=== PATIENT | male | born 1985 | race Caucasian/White ===

== ENCOUNTER 2022-08-11 00:04 | Inpatient (IN) | payer OTHER, SELFPAY ==
[2022-08-11] VITALS (8 sets, daily range): BP systolic 141–199; BP diastolic 80–109; PULSE 67–91; RESP 15–18; TEMP 35.5–37.3; O2SAT 95–99; BMI 32.8; BMI 31.1
--- NOTE | 2022-08-11 00:23 | EKG12_ITS ---
Test Reason : DETOX Blood Pressure : / mmHG Vent. Rate : 065 BPM Atrial Rate : 065 BPM P-R Int : 154 ms QRS Dur : 104 ms QT Int : 428 ms P-R-T Axes : 013 -10 -28 degrees QTc Int : 445 ms Normal sinus rhythm Minimal voltage criteria for LVH, may be normal variant ( R in aVL ) Cannot rule out Anterior infarct , age undetermined Abnormal ECG Confirmed by ERIKA DOMÍNGUEZ, RUDY ([id number]), acquisitions editor IZA ANAND ([id number]) on 08/12/2022 2:01:34 PM Referred By: Confirmed By:RUDY JAMES MD
--- NOTE | 2022-08-11 00:41 | EDS_ITS ---
HPI History of Present Illness Chief Complaint: Substance Abuse Narrative Narrative: 37-year-old male presenting for EtOH detox. He states he drank about 9 tall boys today. This is typical for him. He typically drinks this much in the evening. He request detox. Patient states that he was able to successfully stop drinking cold turkey months ago. Since that time he has started drinking again and he notes that every time he tries to stop he gets muscle aches and spasms. He states he had some chest pains when he tries to withdrawal as well. He describes the chest pain as a spasms however. Not pressure or pleuritic chest pain. He does not see a doctor on a regular basis. He does not know if he has any risk factors for cardiac disease. He states he does have hypertension that he knows about but is not on any medications. [facility] Home Medications NK 08/11/22 [History Last Taken Unknown] Allergy/AdvReac Type Severity Reaction Status Date / Time No Known Allergies Allergy Verified 08/11/22 00:06 Social History Smoking Status: Current every day smoker tobacco type: cigarettes ROS ROS ED Constitutional Constitutional ED: Denies chills, fever(s) or sweats Eyes Eyes: Denies blurry vision or change in vision ENT ENT ED: Denies ear pain or sore throat Cardiovascular Cardiovascular: Reports other Details: Chest spasms ; Denies chest pain, palpitations or racing heartbeat Respiratory/Chest Respiratory/Chest: Denies cough, dyspnea or sputum Gastrointestinal Gastrointestinal: Denies abdominal pain, constipation, diarrhea, nausea or vomiting Genitourinary Genitourinary ED: Denies dysuria, hematuria or urinary frequency Musculoskeletal Musculoskeletal: Reports other Details: Muscle spasm ; Denies arthralgias, myalgias or neck pain Integumentary Denies abscess, Abrasions or rash Neurologic Neurologic: Denies headache(s), paresthesias or weakness Psychiatric Psychiatric: Denies anxiety, depression, suicidal ideation or suicidal thoughts Endocrine Endocrinology: Denies polydipsia or polyuria EXAM Physical Exam Const Vital Signs: 08/11/22 00:04 08/11/22 00:52 08/11/22 00:52 Temperature 96 F L Temperature Source Temporal Pulse Rate 67 Respiratory Rate 18 Blood Pressure 199/109 H 164/107 H Blood Pressure Mean 139 126 Pulse Ox 99 Oxygen Delivery Method Room Air Room Air 08/11/22 02:38 Temperature 98.9 F Temperature Source Temporal Pulse Rate 78 Respiratory Rate 15 Blood Pressure 164/90 H Blood Pressure Mean 114 Pulse Ox 95 Oxygen Delivery Method Room Air Positive well nourished and obese General Appearance ED: NAD; Negative for pallor Nutritional Appearance: obese HEENT Reports moist mucous membranes atraumatic Eyes PERRL and EOMs intact bilaterally General Eye ED: Negative for pale conjunctiva or scleral icterus Chest Wall inspection of chest normal Resp normal respiratory effort and clear to auscultation bilaterally Auscultation: Negative for rales, rhonchi or wheezes Cardio regular rate and regular rhythm GI soft to palpation, non-tender and non-distended Neuro oriented x3 and CN's II-XII intact bilaterally Sensorium / Orientation: alert Motor Exam: strength 5/5 throughout Psych mental status grossly normal and thought process normal Skin General Skin Exam: Negative for jaundice or pallor MDM MDM MDM Narrative Medical decision making narrative: Patient presenting for EtOH detox. He is not have any symptoms of detox and states he is intoxicated currently. He states he had will have withdrawal symptoms if he does not stay. IV line was established and blood work was ordered for medical screening. I did order a troponin, EKG, chest x-ray, due to the patient's report of history of chest pains with withdrawal symptoms. Patient is also hypertensive today. We will have his blood pressure cycled and if he continues to be hypertensive I will treat this. CBC, CMP unremarkable with exception of a potassium of 3.4. On my interpretation the EKG was sinus rhythm with a ventricular rate of 65 bpm without sign of ischemic change or ectopy. There is evidence of LVH. Chest x-ray my interpretation shows no acute cardiopulmonary process. The radiologist interprets this and agrees. High- sensitivity troponin is 22. EtOH 265. Drug screen negative. Patient discussed with hospitalist for admission for detox. Impression: 1. Chest pain 2. EtOH intoxication 3. Desire for EtOH detox Lab Data Attestation: I reviewed the patient's lab results. Labs: Laboratory Results - last 24 hr 08/11/22 08/11/22 08/11/22 01:00 01:00 01:00 WBC RBC Hgb Hct MCV MCH MCHC RDW Std Deviation RDW Coeff of Maia Plt Count MPV Immature Gran % (Auto) Neut % (Auto) Lymph % (Auto) [place] % (Auto) Eos % (Auto) Baso % (Auto) Absolute Neuts (auto) Absolute Lymphs (auto) Nucleated RBC % Sodium 139 Potassium 3.4 L Chloride 104 Carbon Dioxide 24.0 Anion Gap 11 BUN 14 Creatinine 0.92 Estim Creat Clear Calc 129.06 Est GFR (MDRD) Af Amer 120 Est GFR (MDRD) Non-Af 99 BUN/Creatinine Ratio 15.2 Glucose 77 Calcium 8.6 Total Bilirubin 0.40 Direct Bilirubin 0.19 AST 55 H ALT 109 H Alkaline Phosphatase 61 Troponin I High Sens 22 Total Protein 8.1 Albumin 4.1 Globulin 4.0 Urine Opiates Screen NEGATIVE Urine Methadone Screen NEGATIVE Ur Barbiturates Screen NEGATIVE Ur Phencyclidine Scrn NEGATIVE Ur Amphetamines Screen NEGATIVE MDMA (Ecstasy) Screen NEGATIVE U Benzodiazepines Scrn NEGATIVE Urine Cocaine Screen NEGATIVE U Cannabinoids Screen NEGATIVE Ur Drug Screen Comment Ethyl Alcohol 265.0 08/11/22 01:00 WBC 6.5 RBC 5.25 Hgb 17.2 H Hct 51.0 MCV 97.1 H MCH 32.8 H MCHC 33.7 RDW Std Deviation 42.2 RDW Coeff of Maia 11.8 Plt Count 205 MPV 9.6 Immature Gran % (Auto) 0.300 Neut % (Auto) 45.2 L Lymph % (Auto) 40.3 [place] % (Auto) 11.4 H Eos % (Auto) 1.7 Baso % (Auto) 1.1 H Absolute Neuts (auto) 2.9 Absolute Lymphs (auto) 2.61 Nucleated RBC % 0 Sodium Potassium Chloride Carbon Dioxide Anion Gap BUN Creatinine Estim Creat Clear Calc Est GFR (MDRD) Af Amer Est GFR (MDRD) Non-Af BUN/Creatinine Ratio Glucose Calcium Total Bilirubin Direct Bilirubin AST ALT Alkaline Phosphatase Troponin I High Sens Total Protein Albumin Globulin Urine Opiates Screen Urine Methadone Screen Ur Barbiturates Screen Ur Phencyclidine Scrn Ur Amphetamines Screen MDMA (Ecstasy) Screen U Benzodiazepines Scrn Urine Cocaine Screen U Cannabinoids Screen Ur Drug Screen Comment Ethyl Alcohol Radiography Diagnostic Testing: Clinical Impression(s) from Imaging Studies Chest X-Ray 08/11/22 01:05 IMPRESSION: No radiographic evidence of acute cardiopulmonary disease. Electronically Signed: Torrey Palafox MD at 2:18 EDT , Discharge Plan Triage Chief Complaint: Substance Abuse ED Provider: Jeffry Mclain Dx/Rx/DC Orders Prescriptions: No Action NK Primary Care Provider: Care Physician,No Primary Referrals: Care Physician,No Primary [Primary Care Provider] -
--- NOTE | 2022-08-11 01:05 | RAD_ITS ---
INDICATION: chest pain EXAMINATION/TECHNIQUE: X-RAY - AP view chest COMPARISON: None. FINDINGS: LINES/DEVICES: None. LUNGS: No pulmonary edema or focal airspace consolidation. No sizable pleural effusion. No pneumothorax detected. MEDIASTINUM AND CARDIOVASCULAR STRUCTURES: Heart size within normal limits for imaging technique. Central airways and mediastinal contour are unremarkable. BONES AND SOFT TISSUES: No acute findings. RAD/Chest 1 View (Portable) IMPRESSION: No radiographic evidence of acute cardiopulmonary disease. Electronically Signed: Torrey Palafox MD at 2:18 EDT ,
[2022-08-11 01:10] LABS: Absolute Lymphocyte Count 2.61 X10^3/uL (0.83-4.51); Absolute Neutrophil Count 2.9 X10^3/uL (2.0-7.7); Basophil# 0.07 X10^3/uL; Basophil% 1.1 % (0-1); Eosinophil# 0.11 X10^3/uL; Eosinophils% 1.7 % (0-5); Hemoglobin 17.2 g/dL (13.0-16.5); Lymphocyte # 2.61 X10^3/ul (0.83-4.51); Lymphocyte % 40.3 % (19-41); Mean Corp Hgb Conc 33.7 g/dL (32-36); Mean Corpuscular Hgb 32.8 pg (27.0-32.0); Mean Corpuscular Volume 97.1 fL (80-94); Mean Platelet Vol. 9.6 fl (6.2-12.0); Monocyte# 0.74 X10^3/uL; Monocyte% 11.4 % (0-10); NRBC Flagged by Analyzer 0 % (0-5); Neutrophil # 2.93 X10^3/uL (2.7-7.7); Neutrophil % 45.2 % (47-70); Platelet Count 205 K/mm3 (150-450); RBC Distribution Width CV 11.8 % (11.6-14.6); RBC Distribution Width SD 42.2 fl (35.1-43.9); Red Blood Count 5.25 M/mm3 (4.6-6.2); White Blood Count 6.5 K/mm3 (4.4-11.0)
[2022-08-11 02:26] LABS: AST(SGOT) 55 U/L (15-37); Alanine Aminotransfer ALT/SGPT 109 U/L (16-61); Albumin, Serum 4.1 g/dL (3.2-5.0); Alkaline Phosphatase 61 U/L (45-117); Amphetamine Urine VISTA NEGATIVE (<1000 ng/mL); Anion Gap 11 (5-15); BUN 14 mg/dL (7-18); BUN/Creat Ratio 15.2 RATIO (10-20); Barbiturate Urine VISTA NEGATIVE (< 200 ng/mL); Benzodiazepine Urine VISTA NEGATIVE (< 200 ng/mL); Bilirubin, Direct 0.19 mg/dL (0.00-0.30); Calcium,Total 8.6 mg/dL (8.5-10.1); Chloride 104 mmol/L (98-107); Cocaine Urine VISTA NEGATIVE (< 300 ng/mL); Creatinine, Serum 0.92 mg/dL (0.70-1.30); EST Glomerular Filtration Rate 99 mL/min (>60); Ecstacy Urine VISTA NEGATIVE (< 500 ng/mL); Est Glom Filt Rate - Afr Amer 120 mL/min (>60); Estimated Creatinine Clearance 129.06 ml/min; Glucose 77 mg/dL (74-106); Methadone Urine VISTA NEGATIVE (< 300 ng/mL); PCP Urine VISTA NEGATIVE (< 25 ng/mL); Potassium 3.4 mmol/L (3.5-5.1); Protein, Total 8.1 g/dL (6.4-8.2); Sodium Level 139 mmol/L (136-145); THC Urine VISTA NEGATIVE (< 50 ng/mL); Troponin-I HS 22 pg/mL (3.0-78.0); Vista UDS pH Range 5
--- NOTE | 2022-08-11 02:41 | PCM.HP.STD ---
[facility] - General General Date of Admission: 08/11/22 Date of Service: 08/11/22 Chief Complaint: Alcohol detoxification HPI Narrative DELORES FAUSTIN, is a 37 M who presents to the emergency room with request for alcohol detoxification. Patient has been a heavy drinker since age of 20 he is currently 36 years old. He states previously has gone through 1 month of sobriety which he did cold turkey but had some symptoms of withdrawal when he did that previously. He now feels he is unable to go through withdrawal without medical support. Patient had 9 tall boys earlier today and his alcohol level is currently 265, he is remorseful for his drinking and is with 3 children which service his motivation for getting sober. Patient denies chest pain, shortness of breath, fevers or chills at present time he will be admitted to general medical floor and placed on [facility] protocol. [facility] Home Medications NK 08/11/22 [History Last Taken Unknown] Allergy/AdvReac Type Severity Reaction Status Date / Time No Known Allergies Allergy Verified 08/11/22 00:06 Social History Smoking Status: Current every day smoker tobacco type: cigarettes ROS Constitutional Constitutional: Denies change in weight, chills or fever(s) Eyes Eyes: Denies blurry vision ENT HEENT: Denies abnormal hearing Cardiovascular Cardiovascular: Denies chest pain Respiratory/Chest Respiratory/Chest: Denies cough or shortness of breath at rest Gastrointestinal Gastrointestinal: Denies abdominal pain Genitourinary Genitourinary: Denies dysuria Musculoskeletal Musculoskeletal: Denies back pain Integumentary Integumentary: Denies dry skin or jaundice Neurologic Neurologic: Denies abnormal gait Psychiatric Psychiatric: Reports anxiety and depression Vital Signs Vital Signs Vital Signs: 08/11/22 00:04 08/11/22 00:52 08/11/22 00:52 Temperature 96 F L Temperature Source Temporal Pulse Rate 67 Respiratory Rate 18 Blood Pressure 199/109 H 164/107 H Blood Pressure Mean 139 126 Pulse Ox 99 Oxygen Delivery Method Room Air Room Air 08/11/22 02:38 Temperature 98.9 F Temperature Source Temporal Pulse Rate 78 Respiratory Rate 15 Blood Pressure 164/90 H Blood Pressure Mean 114 Pulse Ox 95 Oxygen Delivery Method Room Air Weight Weight: 255 lb 6.4 oz Body Mass Index (BMI) 32.8 Physical Exam Const oriented x3 General Appearance: cooperative HEENT normocephalic and head/scalp atraumatic Eyes PERRL Lymph Lymphatic: no lymphadenopathy noted Resp normal respiratory effort, normal air movement and clear to auscultation bilaterally Cardio regular rate, regular rhythm, S1 normal heart sound and S2 normal heart sound GI soft to palpation and non-tender Extremity normal capillary refill Skin General Skin Exam: no breakdown Neuro no focal motor deficits and no sensory deficits noted Psych Mood & Affect: depressed and anxious Results Lab / Micro Data Result Diagrams: 08/11/22 01:00 08/11/22 01:00 Labs: Laboratory Results - last 24 hr 08/11/22 01:00: Sodium 139, Potassium 3.4 L, Chloride 104, Carbon Dioxide 24.0, Anion Gap 11, BUN 14, Creatinine 0.92, Estim Creat Clear Calc 129.06, Est GFR (MDRD) Af Amer 120, Est GFR (MDRD) Non-Af 99, BUN/Creatinine Ratio 15.2, Glucose 77, Calcium 8.6, Total Bilirubin 0.40, Direct Bilirubin 0.19, AST 55 H, ALT 109 H, Alkaline Phosphatase 61, Troponin I High Sens 22, Total Protein 8.1, Albumin 4.1, Globulin 4.0 08/11/22 01:00: Ethyl Alcohol 265.0 08/11/22 01:00: Urine Opiates Screen NEGATIVE, Urine Methadone Screen NEGATIVE, Ur Barbiturates Screen NEGATIVE, Ur Phencyclidine Scrn NEGATIVE, Ur Amphetamines Screen NEGATIVE, MDMA (Ecstasy) Screen NEGATIVE, U Benzodiazepines Scrn NEGATIVE, Urine Cocaine Screen NEGATIVE, U Cannabinoids Screen NEGATIVE, Ur Drug Screen Comment 08/11/22 01:00: WBC 6.5, RBC 5.25, Hgb 17.2 H, Hct 51.0, MCV 97.1 H, MCH 32.8 H, MCHC 33.7, RDW Std Deviation 42.2, RDW Coeff of Maia 11.8, Plt Count 205, MPV 9.6, Immature Gran % (Auto) 0.300, Neut % (Auto) 45.2 L, Lymph % (Auto) 40.3, [place] % (Auto) 11.4 H, Eos % (Auto) 1.7, Baso % (Auto) 1.1 H, Absolute Neuts (auto) 2.9, Absolute Lymphs (auto) 2.61, Nucleated RBC % 0 Radiology Impression Chest X-Ray 08/11/22 01:05 IMPRESSION: No radiographic evidence of acute cardiopulmonary disease. Electronically Signed: Torrey Palafox MD at 2:18 EDT , Assessment & Plan Assessment/Plan (1) Alcohol withdrawal: PLAN: Plan 1 alcohol dependence with request for alcohol withdrawal support?admit patient to general medical floor, placed patient on CIWA protocol. It was explained to the patient the programs voluntary and that he must behave appropriately with nursing staff while he is admitted to our facility. He does genuinely seem remorseful and motivated for change. He will need case management consult for discharge planning and ongoing alcohol rehab support. Charges/Coding Visit Charges Inpatient E&M: 70400 Init Hosp L2
[2022-08-11] MEDS: LORazepam 1 MG Tablet 2 MG PO ×2 (04:05→06:50)
--- NOTE | 2022-08-11 07:29 | PN.HOSP_ITS ---
Reason for Visit Reason for Visit: Alcohol detox Subjective Subjective Patient is a 37-year-old white male who presented to the emergency department early this morning requesting detoxification from alcohol. Patient reported he has been a heavy drinker since he was 20. Has gone through rehab before at which time he quit cold turkey however had significant withdrawal symptoms at that time. He was sober for 1 month. Upon presentation he indicated he did not feel like he goes through withdrawal without medical therapy. Patient had 9 tall boys earlier on the day of admission and his alcohol level was 265 on presentation. He indicated he was remorseful about his drinking and is with 3 children which is his primary motivator for getting sober. He was admitted to medical floor and placed on an Ativan taper. We will transition this to phenobarb taper with CIWA protocol and as needed Ativan. Objective Data Objective Data Vital Signs: Vital Signs Temp Pulse Resp BP Pulse Ox O2 Del Method 98.1 F 81 16 153/94 H 97 Room Air 08/11/22 03:43 08/11/22 03:43 08/11/22 03:43 08/11/22 03:43 08/11/22 03:43 08/11/22 03:43 Oxygen Delivery Method Room Air Weight: 113.035 kg Body Mass Index (BMI) 31.1 Lab / Micro Data Result Diagrams: 08/11/22 01:00 08/11/22 01:00 Labs: Laboratory Results - last 24 hr 08/11/22 01:00: Sodium 139, Potassium 3.4 L, Chloride 104, Carbon Dioxide 24.0, Anion Gap 11, BUN 14, Creatinine 0.92, Estim Creat Clear Calc 129.06, Est GFR (MDRD) Af Amer 120, Est GFR (MDRD) Non-Af 99, BUN/Creatinine Ratio 15.2, Glucose 77, Calcium 8.6, Total Bilirubin 0.40, Direct Bilirubin 0.19, AST 55 H, ALT 109 H, Alkaline Phosphatase 61, Troponin I High Sens 22, Total Protein 8.1, Albumin 4.1, Globulin 4.0 08/11/22 01:00: Ethyl Alcohol 265.0 08/11/22 01:00: Urine Opiates Screen NEGATIVE, Urine Methadone Screen NEGATIVE, Ur Barbiturates Screen NEGATIVE, Ur Phencyclidine Scrn NEGATIVE, Ur Amphetamines Screen NEGATIVE, MDMA (Ecstasy) Screen NEGATIVE, U Benzodiazepines Scrn NEGATIVE, Urine Cocaine Screen NEGATIVE, U Cannabinoids Screen NEGATIVE, Ur Drug Screen Comment 08/11/22 01:00: WBC 6.5, RBC 5.25, Hgb 17.2 H, Hct 51.0, MCV 97.1 H, MCH 32.8 H, MCHC 33.7, RDW Std Deviation 42.2, RDW Coeff of Maia 11.8, Plt Count 205, MPV 9.6, Immature Gran % (Auto) 0.300, Neut % (Auto) 45.2 L, Lymph % (Auto) 40.3, [place] % (Auto) 11.4 H, Eos % (Auto) 1.7, Baso % (Auto) 1.1 H, Absolute Neuts (auto) 2.9, Absolute Lymphs (auto) 2.61, Nucleated RBC % 0 Radiography Diagnostic Testing: Radiology Impression Chest X-Ray 08/11/22 01:05 IMPRESSION: No radiographic evidence of acute cardiopulmonary disease. Electronically Signed: Torrey Palafox MD at 2:18 EDT , Assessment & Plan Assessment/Plan (1) Alcohol withdrawal: (2) Hypokalemia: (3) Alcoholic hepatitis: PLAN: Plan Acute alcohol withdrawal -Patient initially started on Ativan taper -Transition to phenobarb taper with as needed Ativan per CIWA -Continue supportive medication for symptom management -Continue thiamine and folate -180 consultation Hypokalemia -Unclear if replacement was given -Repeat a.m. lab to reassess Alcoholic hepatitis -Mild -Repeat liver functions in a.m. to reassess Tobacco abuse -Start nicotine patch -Recommend cessation DVT prophylaxis -Low risk -Encourage ambulation CODE STATUS -Full code
[2022-08-11] MEDS: Thiamine Hydrochloride 100 MG Tablet PO (07:54)
[2022-08-11] MEDS: Phenobarbital 32.4 MG Tablet 64.8 MG PO ×5 (07:54→23:29)
[2022-08-11] MEDS: Folic Acid 1 MG Tablet PO (07:54)
--- NOTE | 2022-08-11 12:14 | ADDICTION ---
This magazine writer met with PT to conduct ASAM, MSE, AUDIT assessments and to plan for d/c. PT A+Ox4 and participated actively. All assessments completed and placed in PT's chart. PT plans to f/u with individual counselor at [facility] for follow-up counseling services. PT did not indicate a need for transportation post d/c from [facility].
[2022-08-11] MEDS: hydrOXYzine PAM 25 MG Capsule 50 MG PO (19:16)
[2022-08-12 03:36] VITALS: BP 150/88; PULSE 78; RESP 16; TEMP 37.2; O2SAT 96
[2022-08-12] MEDS: Phenobarbital 32.4 MG Tablet 64.8 MG PO ×6 (03:41→23:37)
[2022-08-12 07:31] LABS: AST(SGOT) 55 U/L (15-37); Alanine Aminotransfer ALT/SGPT 120 U/L (16-61); Albumin, Serum 3.5 g/dL (3.2-5.0); Alkaline Phosphatase 57 U/L (45-117); Anion Gap 5 (5-15); BUN 13 mg/dL (7-18); BUN/Creat Ratio 14.2 RATIO (10-20); Calcium,Total 8.5 mg/dL (8.5-10.1); Chloride 106 mmol/L (98-107); Creatinine, Serum 0.92 mg/dL (0.70-1.30); EST Glomerular Filtration Rate 99 mL/min (>60); Est Glom Filt Rate - Afr Amer 120 mL/min (>60); Estimated Creatinine Clearance 132.67 ml/min; Globulin 3.5 g/dL (2.2-4.2); Glucose 89 mg/dL (74-106); Magnesium 2.3 mg/dL (1.6-2.6); Phosphorus 2.8 mg/dL (2.5-4.9); Potassium 3.8 mmol/L (3.5-5.1); Sodium Level 136 mmol/L (136-145)
--- NOTE | 2022-08-12 07:35 | US_ITS ---
STUDY: ABDOMINAL ULTRASOUND - RIGHT UPPER QUADRANT REASON FOR VISIT: Male, 37 years old elevated LFTs TECHNIQUE: Ultrasound evaluation of the right upper quadrant was performed with real-time and static doty-scale imaging. TECHNICAL QUALITY: Adequate. COMPARISON: None. FINDINGS: Liver: The liver measures 17.2 cm. There is increased echogenicity consistent with fatty infiltration. The bile ducts are within normal limits. There is hepatic color flow. The direction of portal flow is hepatopetal. There is no demonstrated mass lesion. Gallbladder: Normal distended gallbladder. The gallbladder wall measures 1.4 mm. There is a negative sonographic Epstein''s sign. There is no pericholecystic fluid. There are no gallstones. Common Bile Duct (C.B.D.): The common bile duct measures 4.2 mm. Pancreas: Normal size of the head, body and tail of the pancreas. There is increased echogenicity of the pancreas. There is no demonstrated pancreatic mass or cyst. Right Kidney: Normal size of the right kidney. The right kidney measures 10.8 x 6.6 x 5.3 cm. Normal renal cortex. The right cortex measures 1.5 cm. There is no demonstrated renal mass or cyst. There is no right hydronephrosis. US/Liver IMPRESSION: Hepatomegaly with diffuse fatty infiltration of the liver, no discrete lesion Nonspecific echogenic pancreas Electronically Signed: Maxim Friedman MD at 11:18 EDT ,
[2022-08-12 07:52] VITALS: BP 152/90; PULSE 70; RESP 18; TEMP 37; O2SAT 97
[2022-08-12 08:40] LABS: Hepatitis B Surface Antibody Reactive; Hepatitis C Antibody Non-Reactive (Nonreactive)
[2022-08-12 14:01] VITALS: BP 132/81; PULSE 78; RESP 18; TEMP 37.1; O2SAT 98
--- NOTE | 2022-08-12 14:23 | PCM.PN.HOSP ---
Reason for Visit Reason for Visit: Alcohol detox Subjective Subjective Patient denies any real overnight issues. States he is sleepy. I explained that is likely related to the phenobarb. No significant withdrawal symptoms at this time. He intends on outpatient follow-up after discharge. He seems very motivated with regards to his sobriety. We did discuss his abnormal liver enzymes and the ultrasound that was performed this morning. I am concerned that he may have fatty liver and we discussed this. Objective Data Objective Data Vital Signs: Vital Signs Temp Pulse Resp BP Pulse Ox O2 Del Method 98.6 F 70 18 152/90 H 97 Room Air 08/12/22 07:52 08/12/22 07:52 08/12/22 07:52 08/12/22 07:52 08/12/22 07:52 08/12/22 07:52 Oxygen Delivery Method Room Air Weight: 113.035 kg Body Mass Index (BMI) 31.1 Lab / Micro Data Result Diagrams: 08/11/22 01:00 08/12/22 05:20 Labs: Laboratory Results - last 24 hr 08/12/22 05:20: Sodium 136, Potassium 3.8, Chloride 106, Carbon Dioxide 25.0, Anion Gap 5, BUN 13, Creatinine 0.92, Estim Creat Clear Calc 132.67, Est GFR (MDRD) Af Amer 120, Est GFR (MDRD) Non-Af 99, BUN/Creatinine Ratio 14.2, Glucose 89, Calcium 8.5, Phosphorus 2.8, Magnesium 2.3, Total Bilirubin 0.50, AST 55 H, ALT 120 H, Alkaline Phosphatase 57, Total Protein 7.0, Albumin 3.5, Globulin 3.5, Albumin/Globulin Ratio 1.0 08/12/22 05:20: Hep Bs Antibody Reactive, Hepatitis C Antibody Non-Reactive Radiography Diagnostic Testing: Radiology Impression Liver Ultrasound 08/12/22 07:35 IMPRESSION: Hepatomegaly with diffuse fatty infiltration of the liver, no discrete lesion Nonspecific echogenic pancreas Electronically Signed: Maxim Friedman MD at 11:18 EDT , Physical Exam Const alert, oriented x3 and no apparent distress Constitutional Narrative: Very pleasant, middle-aged, white male, sitting up in bed, appears comfortable and nontoxic General Appearance: cooperative HEENT head/scalp atraumatic and moist oral mucous membranes Head and Scalp: normocephalic Eyes PERRL Lymph Lymphatic: no lymphadenopathy noted Resp normal respiratory effort, no retractions, no use of accessory muscles and clear to auscultation bilaterally Auscultation: Negative for rales, rhonchi or wheezes Cardio regular rate, regular rhythm, S1 normal heart sound, S2 normal heart sound, no murmurs, no rub and no gallops GI normal to inspection, nondistended, normoactive bowel sounds and soft to palpation Extremity no clubbing, cyanosis or edema Extremity Narrative: 2+ pedal pulses is Skin General Skin Exam: no breakdown Neuro oriented x3, moves all extremities and no focal motor deficits Neuro Narrative: no tremor noted Psych affect normal Psych Narrative: At slightly flat, eye contact is good, mood seems somewhat depressed Mood & Affect: depressed and anxious Assessment & Plan Assessment/Plan (1) Alcohol withdrawal: (2) Hypokalemia: (3) Alcoholic hepatitis: PLAN: Plan Acute alcohol withdrawal -Continue phenobarb taper -As needed Ativan per CIWA -Continue supportive medication for symptom management -Continue thiamine and folate -180 has evaluated patient and plan for outpatient follow-up after discharge Hypokalemia -Resolved Transaminitis -Initially thought that this was going to be alcoholic hepatitis however no significant change in enzymes -Right upper quadrant ultrasound shows fatty infiltration -Hepatitis B antibody is reactive suggesting immunity -Hepatitis C antibody is nonreactive -BMI is 31.1 -Suspect patient has fatty infiltration from alcohol use and metabolic disorder -We will have patient follow-up with GI after discharge Tobacco abuse -Start nicotine patch -Recommend cessation Obesity -BMI is 31.1 -Recommend weight loss DVT prophylaxis -Low risk -Encourage ambulation CODE STATUS -Full code Charges/Coding Visit Charges Inpatient E&M: 40984 Subs Hosp L2
[2022-08-12 19:49] VITALS: BP 157/93; PULSE 79; RESP 16; TEMP 37.1; O2SAT 99
[2022-08-12] MEDS: Gabapentin 300 MG Capsule PO (19:49)
[2022-08-12] MEDS: traZODone 100 MG Tablet PO (19:49)
[2022-08-13 02:00] VITALS: BP 126/72; PULSE 70; RESP 16; TEMP 37.1; O2SAT 95
[2022-08-13] MEDS: Phenobarbital 32.4 MG Tablet 64.8 MG PO ×5 (03:40→20:45)
[2022-08-13] MEDS: Thiamine Hydrochloride 100 MG Tablet PO (08:46)
[2022-08-13] MEDS: Folic Acid 1 MG Tablet PO (08:46)
[2022-08-13 09:14] VITALS: BP 135/87; PULSE 62; RESP 18; TEMP 36.7; O2SAT 97
--- NOTE | 2022-08-13 14:30 | PN.HOSP_ITS ---
Reason for Visit Reason for Visit: Alcohol detox Subjective Subjective Patient states he is still feeling somewhat tremulous and thinks he needs about another 24 hours. States he had a little bit of anxiety overnight as well. Objective Data Objective Data Vital Signs: Vital Signs Temp Pulse Resp BP Pulse Ox O2 Del Method 98.1 F 62 18 135/87 H 97 Room Air 08/13/22 09:14 08/13/22 09:14 08/13/22 09:14 08/13/22 09:14 08/13/22 09:14 08/13/22 09:14 Oxygen Delivery Method Room Air Weight: 113.035 kg Body Mass Index (BMI) 31.1 Lab / Micro Data Result Diagrams: 08/11/22 01:00 08/12/22 05:20 Physical Exam Const alert, oriented x3, no apparent distress and well nourished Constitutional Narrative: Very pleasant, middle-aged, white male, sitting up in bed, appears comfortable and nontoxic General Appearance: cooperative HEENT normocephalic, head/scalp atraumatic and moist oral mucous membranes Resp normal respiratory effort, normal air movement, no retractions, no use of accessory muscles and clear to auscultation bilaterally Auscultation: Negative for rales, rhonchi or wheezes Cardio regular rate, regular rhythm, S1 normal heart sound, S2 normal heart sound, no murmurs, no rub and no gallops GI normal to inspection, nondistended, normoactive bowel sounds, soft to palpation and non-tender Extremity normal capillary refill and no clubbing, cyanosis or edema Extremity Narrative: 2+ pedal pulses is Skin General Skin Exam: no breakdown Neuro oriented x3, moves all extremities and no focal motor deficits Neuro Narrative: no tremor noted Speech: speech normal Psych Psych Narrative: Affect slightly flat, eye contact is good, mood seems somewhat depressed Assessment & Plan Assessment/Plan (1) Alcohol withdrawal: (2) Hypokalemia: (3) Alcoholic hepatitis: PLAN: Plan Acute alcohol withdrawal -Continue phenobarb taper -As needed Ativan per CIWA -Continue supportive medication for symptom management -Continue thiamine and folate -180 has evaluated patient and plan for outpatient follow-up after discharge -Anticipate discharge in the next 24 hours Fatty liver -Initially thought that this was going to be alcoholic hepatitis however no sign ificant change in enzymes -Right upper quadrant ultrasound shows fatty infiltration -Hepatitis B antibody is reactive suggesting immunity -Hepatitis C antibody is nonreactive -BMI is 31.1 -Suspect patient has fatty infiltration from alcohol use and metabolic disorder -We will have patient follow-up with GI after discharge Tobacco abuse -Start nicotine patch -Recommend cessation Obesity -BMI is 31.1 -Recommend weight loss DVT prophylaxis -Low risk -Encourage ambulation CODE STATUS -Full code Charges/Coding Visit Charges Inpatient E&M: 22950 Subs Hosp L1
[2022-08-13 16:30] VITALS: BP 145/96; PULSE 75; RESP 18; TEMP 36.6; O2SAT 95
[2022-08-13 20:39] VITALS: BP 141/94; PULSE 65; RESP 16; TEMP 36.9; O2SAT 98
[2022-08-14] MEDS: Phenobarbital 32.4 MG Tablet 64.8 MG PO ×2 (03:29→09:29)
[2022-08-14 03:30] VITALS: BP 121/87; PULSE 67; RESP 16; TEMP 36.4; O2SAT 99
[2022-08-14] MEDS: Thiamine Hydrochloride 100 MG Tablet PO (09:29)
[2022-08-14] MEDS: Folic Acid 1 MG Tablet PO (09:29)
[2022-08-14 09:40] VITALS: BP 138/80; PULSE 69; RESP 18; TEMP 36.6; O2SAT 97
--- NOTE | 2022-08-14 10:47 | PCM.DC.SUM ---
Providers Date of Admission: 08/11/22 Date of Discharge: 08/14/22 Primary Care Physician: No Primary Care Phys Reason For Visit: ALCOHOL DETOXIFICATION REQUESTED Diagnosis Discharge Diagnosis (1) Alcohol withdrawal: Status: Acute Code(s): F10.939 - Alcohol use, unspecified with withdrawal, unspecified (2) Hypokalemia: Status: Acute Code(s): E87.6 - Hypokalemia (3) Alcoholic hepatitis: Status: Acute Code(s): K70.10 - Alcoholic hepatitis without ascites Medications at Discharge Home Medications NK 08/11/22 Hospital Course Operations None Procedures None Summary of Care Provided Minutes Spent on Discharge: 25 Hospital Course: Patient is a 37-year-old white male who presented to the emergency department early this morning requesting detoxification from alcohol.? Patient reported he has been a heavy drinker since he was 20.? Has gone through rehab before at which time he quit cold turkey however had significant withdrawal symptoms at that time.? He was sober for 1 month.? Upon presentation he indicated he did not feel like he goes through withdrawal without medical therapy.? Patient had 9 tall boys earlier on the day of admission and his alcohol level was 265 on presentation.? He indicated he was remorseful about his drinking and is with 3 children which is his primary motivator for getting sober.? He was admitted to medical floor and placed on an Ativan taper.? I did transition him from an Ativan taper to a phenobarb taper. As needed Ativan was used for elevated CIWA. He was placed on supportive medication for withdrawal symptoms as well as thiamine and folate during his hospital course. Overall his withdrawal was uneventful. We did note that his liver enzymes were elevated on presentation and initially thought this was related to alcoholic hepatitis however they remained elevated with no significant improvement. I obtained a right upper quadrant ultrasound and it does appear he has some fatty liver. Hepatitis B antibodies were positive indicating immunity and hepatitis C antibodies were negative. I have referred him to gastroenterology as an outpatient to be followed up for his fatty liver disease. 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 He does have an elevated BMI of 31.1. He was seen by addiction medicine and has follow-up at [facility] as an outpatient for ongoing sobriety services. The patient felt his symptoms were under enough control by 08/14/2022 and we were able to discharge him home in stable condition. He did have some electrolyte abnormalities during his hospital course which were resolved with supplementation. Discharge diagnoses: Acute alcohol withdrawal Alcohol abuse Fatty liver disease Tobacco abuse Obesity Physical Exam Const alert, oriented x3, no apparent distress and well nourished Constitutional Narrative: Very pleasant, middle-aged, white male, sitting up in bed, appears comfortable and nontoxic, watching television General Appearance: cooperative, comfortable, well kempt and well developed Orientation / Consciousness: awake, oriented to person, oriented to place and oriented to time Exam Limitations: no limitations Nutritional Appearance: obese HEENT normocephalic, head/scalp atraumatic, hearing grossly normal bilaterally and moist oral mucous membranes HEENT Narrative: Mallampati 3, no thrush Resp normal respiratory effort, normal air movement, no retractions, no use of accessory muscles and clear to auscultation bilaterally Auscultation: Negative for rales, rhonchi or wheezes Cardio regular rate, regular rhythm, S1 normal heart sound, S2 normal heart sound, no murmurs, no rub and no gallops GI normal to inspection, nondistended, normoactive bowel sounds, soft to palpation and non-tender Extremity no clubbing, cyanosis or edema Extremity Narrative: 2+ pedal pulses is Neuro oriented x3, moves all extremities and no focal motor deficits Speech: speech normal Psych affect normal Psych Narrative: Affect slightly flat, eye contact is good, mood seems somewhat depressed Mood & Affect: depressed Weight / BMI Weight Weight: 113.035 kg Body Mass Index (BMI) 31.1 ABG / Lab / Microbiology Data Result Diagrams: 08/11/22 01:00 08/12/22 05:20 D/C Instructions Discharge Diet: Low fat / Low cholesterol Discharge Activity: Return to Normal Activity Return to work on: 08/18/22 Meaningful Use Info Meaningful Use Diagnoses (Choose all that apply): None applicable Discharge Plan Admission Admit Date/Time: 08/11/22 02:46 Primary Reason for Your Visit: Alcohol detox Attending Provider: Bessie Baeza Primary Care Provider: Care Physician,No Primary Consulting Providers: Nathaniel Espinoza Instructions Forms: Work Excuse Discharge Orders/Prescriptions Prescriptions: No Action NK Referrals / Follow Up: Friend,Balaji, DO [Med Staff - Active Staff] - Within 3 Months (call for an appt as soon as you are discharged for follow-up for fatty liver) Care Physician,No Primary [Primary Care Provider] - Disposition Disposition (needs filled in before D/C Order can be placed): Home, Self Care Charges/Coding Visit Charges Inpatient E&M: 30994 Disch Hosp
== END 2022-08-14 12:09 | disposition home or self-care (01) | DRG 897 ==
LOC: ED 01:20 → MS3 03:00
PROVIDERS: Admitting Provider Family Medicine; Emergency Provider Student in an Organized Health Care Education/Training Program; Visit Provider Internal Medicine
DX: F10.239 Alcohol dependence with withdrawal, unspecified (principal); E66.9 Obesity, unspecified; K76.0 Fatty (change of) liver, not elsewhere classified; K70.10 Alcoholic hepatitis without ascites; E87.6 Hypokalemia; F17.210 Nicotine dependence, cigarettes, uncomplicated; Z68.31 Body mass index [BMI] 31.0-31.9, adult; Y90.8 Blood alcohol level of 240 mg/100 ml or more
CPT/HCPCS: 36415; 71045; 76705; 80048; 80053; 80076; 80307; 82077; 83735; 84100; 84484; 85025; 86706; 86803; 93005; 99284; 99406; A4216

== ENCOUNTER 2023-05-10 21:24 | Inpatient (IN) | payer OTHER, SELFPAY ==
[2023-05-10 21:25] VITALS: BP 180/116; PULSE 79; RESP 18; TEMP 36.5; O2SAT 99; BMI 35.2
[2023-05-10 21:59] LABS: Absolute Neutrophil Count 8.7 X10^3/uL (2.0-7.7); Basophil% 0.8 % (0-1); Eosinophil# 0.17 X10^3/uL; Eosinophils% 1.3 % (0-5); Hematocrit 52.2 % (40-54); Hemoglobin 17.8 g/dL (13.0-16.5); Lymphocyte % 23.4 % (19-41); Mean Corp Hgb Conc 34.1 g/dL (32-36); Mean Corpuscular Hgb 32.8 pg (27.0-32.0); Mean Corpuscular Volume 96.1 fL (80-94); Mean Platelet Vol. 9.6 fl (6.2-12.0); Monocyte# 1.09 X10^3/uL; Monocyte% 8.2 % (0-10); NRBC Flagged by Analyzer 0 % (0-5); Neutrophil # 8.72 X10^3/uL (2.7-7.7); Neutrophil % 65.7 % (47-70); Platelet Count 210 K/mm3 (150-450); Red Blood Count 5.43 M/mm3 (4.6-6.2); White Blood Count 13.3 K/mm3 (4.4-11.0)
--- OUTSIDE RECORDS SUMMARY | 2023-05-10 22:07 | XMS RPT_ITS | CCD ---
Author Name Unknown Address [address] [place] [address] Organization [facility] Care Team Providers Care Clinical Education Manager Name Role Phone Unavailable Unavailable Unavailable Stencel, Michael Burdick Unavailable Unavailable Stencel, Michael Burdick Unavailable Unavailable CHOPKOLISA Unavailable Unavail able STENCEL, MICHAEL CASTILLO Unavailable Unavailab Julissa Georges Attending Unavailable Stencel, Primary Care Unavailable Julissa Ryan Admitting Unavailable Stencel, Micheal Attending Unavailable Stencel, Primary Care Unavailable Stencel, Attending Unavailable Stencel, Primary Care Unavailable Stencel, Admitting Unavailable Stencel, Attending Unavailable Stencel, Primary Care Unavailable Stencel, Primary Care Unavailable Stencel, Admitting Unavailable Stencel, Attending Unavailable Stencel, Attending Unavailable Stencel, Primary Care Unavailable Stencel, Admitting Unavailable Stencel, Attending Unavailable Stencel, Primary Care Unavailable Stencel, Attending Unavailable Stencel, Primary Care Unavailable Stencel, Admitting Unavailable Stencel, Attending Unavailable Stencel, Primary Care Unavailable Stencel, Unavailable Ibrahima Matias Unavailable Unavailsharon e Adelita Garcia Unavailable Unavailable Margot Arnold Unavailable Unavailable Moomaw, Tramaine Patel Unavailable Unavailable Jenelle, Mr. Damir Davis Attending Cristina Galindo, Dr. Michael Castillo Primary Care Unava ilable ClaytonMargot milan Attending Unavailable Stencel, Dr. Michael Castillo Primary Care Unava ilable Moomaw, Mr. Tramaine Galvin Attending Unavailable Stencel, Dr. Michael Castillo Primary Care Unava ilable Josie, Dr. Michael Castillo Primary Care Unava ilable Renata, Ms. Adelita Varghese Attending Michael Horan MD Primary Care Provider [phone] MICHAEL GALINDO Primary Care Unavailable DAMIR ALMANZAR Attending Unavailable MICHAEL GALINDO Primary Care Unavailable ADELITA GARCIA Attending Unavailable Allergies Allergy Classification Reported Allergen(s) Allergy Type Date of Onset Reaction(s) Facility (1 source) No Known Medication Allergies; Translations: [No Known Medication Allergies] Propensity to adverse reactions to drug (disorder) [facility] Repository Medications Current Medications Medication Drug Class(es) Dates Sig (Normalized) Sig (Original) [id number] 200 actuat albuterol 0.09 mg/actuat metered dose inhaler (5 sources) beta2-Adrenergic Agonist Start: 12-18-2021 albuterol 90 mcg/actuation inhaler Inhale twice a day. 0 12/18/2021 Active Completed/Discontinued Medications Medication Drug Class(es) Dates Sig (Normalized) Sig (Original) acetaminophen 325 mg / oxyCODONE hydrochloride 5 mg oral tablet (3 sources) Opioid Agonist Start: 02-13-2019 End: 02-15-2019 take 1 tablet by mouth four times daily Percocet 5/325 oral tablet ; 1 tab(s) orally 4 times a day Quantity: 12 Refills: 0 Ordered: 13-Feb-2019 Luz Canada Start: 13-Feb-2019 End: 15-Feb-2019 Status: Other Generic Substitution Allowed ondansetron 4 mg oral tablet (3 sources) Serotonin-3 Receptor Antagonist Start: 02-13-2019 End: 02-15-2019 take 1 tablet by mouth four times daily ondansetron 4 mg oral tablet ; 1 tab(s) orally 4 times a day Quantity: 12 Refills: 0 Ordered: 13-Feb-2019 Luz Canada Start: 13-Feb-2019 End: 15-Feb-2019 Status: Other Generic Substitution Allowed NEGATED: Highlighted row has not occurred!No Current Medications (1 source) No Current Medications Problems Active Problems Problem Classification Problem Date Documented Da te Episodic/Chronic Bacterial infection; unspecified site (1 source) Other specified bacterial agents as the cause of diseases classified elsewhere; Translations: [Oth bacterial agents as the cause of diseases classd elswhr] Onset: 07-28-2022 Episodic Kelly (2 sources) Corrosion of second degree of right thigh, initial encounter; Translations: [Corrosion of unspecified degree of right thigh, initial encounter] Onset: 07-28-2022 Episodic Fever of unknown origin (4 sources) Fever; Translations: [Fever, unspecified] Onset: 09-25-2022 09-25-2022 Episodic Headache; including migraine (4 sources) Headache; including migraine; Translations: [Headache, unspecified] Onset: 09-25-2022 09-25-2022 Past or Other Problems Problem Classification Problem Date Documented Da te Episodic/Chronic Acute bronchitis (1 source) Acute bronchitis, unspecified; Translations: [Acute bronchitis, unspecified] Onset: 12-18-2021 Episodic Other upper respiratory disease (1 source) Nasal congestion; Translations: [Nasal congestion] Onset: 12-18-2021 Episodic Results Test Name Value Interpretation Reference Range Facil ity Vital Signs Date Time Vital Sign Value Performing Clinician Facility 04-27-2023 13:19-0500 Body height 188 cm Adelita Garcia [employer] Work Phone: [facility] 04-27-2023 13:19-0500 Body mass index (BMI) [Ratio] 33.38 kg/m2 Adelita Garcia [employer] Work Phone: [facility] 04-27-2023 13:19-0500 Body temperature 97.5 [degF] Adelita Garcia [employer] R[employer]AL MANAGER Work Phone: [facility] 04-27-2023 13:19-0500 Body weight 117.94 kg Adelita Garcia [employer] RENTAL MANAGER Work Phone: [facility] 04-27-2023 13:19-0500 Diastolic blood pressure 103 mm[Hg] Adelita Garcia [employer] RENTAL MANAGER Work Phone: [facility] 04-27-2023 13:19-0500 Heart rate 82 /min Adelita Garcia [employer] E[employer] RENTAL MANAGER Work Phone: [facility] 04-27-2023 13:19-0500 Respiratory rate 18 /min Adelita Garcia [employer] RENTAL MANAGER Work Phone: [facility] 04-27-2023 13:19-0500 SaO2% (BldA) [Mass fraction] 98 % Adelita Garcia [employer] RENTAL MANAGER Work Phone: [facility] 04-27-2023 13:19-0500 Systolic blood pressure 148 mm[Hg] Adelita Garcia [employer] RENTAL MANAGER Work Phone: [facility] 04-22-2023 11:40-0500 Body height 188 cm Damir Jenelle PA-C Work Phone: [facility] 04-22-2023 11:40-0500 Body mass index (BMI) [Ratio] 33.38 kg/m2 Damir Jenelle PA-C Work Phone: [phone] [place] [address] 04-22-2023 11:40-0500 Body temperature 98.29 [degF] Damir Jenelle PA-C Work Phone: 3(200)[phone] [place] [address] 04-22-2023 11:40-0500 Body weight 117.94 kg Damir Jenelle PA-C Work Phone: [facility] 04-22-2023 11:40-0500 Diastolic blood pressure 89 mm[Hg] Damir Jenelle PA-C Work Phone: [facility] 04-22-2023 11:40-0500 Heart rate 74 /min Damir Jenelle PA-C Work Phone: [facility] 04-22-2023 11:40-0500 Respiratory rate 16 /min Damir Jenelle PA-C Work Phone: [facility] 04-22-2023 11:40-0500 SaO2% (BldA) [Mass fraction] 98 % Damir Jenelle PA-C Work Phone: [facility] 04-22-2023 11:40-0500 Systolic blood pressure 134 mm[Hg] Damir Jenelle PA-C Work Phone: [phone] [place] [address] 09-25-2022 19:08-0400 Body height 190.5 cm Stencel Other Phone: [facility] 09-25-2022 19:08-0400 Body temperature 98.6 [degF] Stencel Other Phone: [facility] 09-25-2022 19:08-0400 Body weight 120.3 kg Stencel Other Phone: [facility] 09-25-2022 19:08-0400 Diastolic blood pressure 96 mm[Hg] Stencel Other Phone: [facility] 09-25-2022 19:08-0400 Heart rate 77 /min Stencel Other Phone: [facility] 09-25-2022 19:08-0400 Respiratory rate 16 /min Stencel Other Phone: [facility] 09-25-2022 19:08-0400 SaO2% (BldA) [Mass fraction] 98 % Stencel Other Phone: [facility] 09-25-2022 19:08-0400 Systolic blood pressure 164 mm[Hg] Stencel Other Phone: [facility] 09-25-2022 18:02-0400 Body height 190.5 cm Stencel Other Phone: [facility] 09-25-2022 18:02-0400 Body temperature 97.88 [degF] Stencel Other Phone: [facility] 09-25-2022 18:02-0400 Diastolic blood pressure 85 mm[Hg] Stencel Other Phone: [facility] 09-25-2022 18:02-0400 Heart rate 82 /min Stencel Other Phone: [facility] 09-25-2022 18:02-0400 SaO2% (BldA) [Mass fraction] 97 % Stencel Other Phone: [facility] 09-25-2022 18:02-0400 Systolic blood pressure 155 mm[Hg] Stencel Other Phone: [facility] 12-18-2021 11:21-0400 Body height 188 cm Stencel Other Phone: [facility] 12-18-2021 11:21-0400 Body temperature 97.7 [degF] Stencel Other Phone: [facility] 12-18-2021 11:21-0400 Diastolic blood pressure 94 mm[Hg] Stencel Other Phone: [facility] 12-18-2021 11:21-0400 Heart rate 79 /min Stencel Other Phone: [facility] 12-18-2021 11:21-0400 SaO2% (BldA) [Mass fraction] 98 % Stencel Other Phone: [facility] 12-18-2021 11:21-0400 Systolic blood pressure 150 mm[Hg] Stencel Other Phone: [facility] 01-29-2021 12:22-0500 Body height 190.5 cm Stencel Other Phone: [facility] 01-29-2021 12:22-0500 Body temperature 97.88 [degF] Stencel Other Phone: [facility] 01-29-2021 12:22-0500 Diastolic blood pressure 90 mm[Hg] Stencel Other Phone: [facility] 01-29-2021 12:22-0500 Heart rate 87 /min Stencel Other Phone: [facility] 01-29-2021 12:22-0500 SaO2% (BldA) [Mass fraction] 96 % Stencel Other Phone: [facility] 01-29-2021 12:22-0500 Systolic blood pressure 132 mm[Hg] Michael Goffhao Other Phone: [facility] 11-05-2020 13:43-0400 Body height 190 cm Josie Other Phone: [facility] 11-05-2020 13:43-0400 Body temperature 98.06 [degF] Michael Galindo Other Phone: [facility] 11-05-2020 13:43-0400 Diastolic blood pressure 100 mm[Hg] Michael Galindo Other Phone: [facility] 11-05-2020 13:43-0400 Heart rate 80 /min Josie Other Phone: [facility] 11-05-2020 13:43-0400 SaO2% (BldA) [Mass fraction] 97 % Josie Other Phone: [facility] 11-05-2020 13:43-0400 Systolic blood pressure 152 mm[Hg] Josie Other Phone: [facility] Encounters Encounter Date Encounter Type Care Provider Facility Start: 04-27-2023 End: 04-27-2023 [facility] Start: 04-27-2023 End: 04-27-2023 Patient encounter procedure Adelita Garcia [employer] MANAGER Work Phone: [facility] Plan of Treatment Date Care Activity Detail Author Start: 2036 Zoster Vaccines (1 of 2) Zoster Vaccines (1 of 2) [facility] Start: 11-20-2022 Influenza vaccination Influenza Vaccine (#1) [facility] Start: 2008 DTaP/Tdap/Td Vaccines (1 - Tdap) DTaP/Tdap/Td Vaccines (1 - Tdap) [facility] Start: 2005 Hepatitis A Vaccines (1 of 2 - Risk 2-dose series) Hepatitis A Vaccines (1 of 2 - Risk 2-dose series) [facility] Start: 2004 Hepatitis C screening Hepatitis C Screening [facility] Start: 1992 Pneumococcal Vaccine: Pediatrics (0 to 5 Years) and At-Risk Patients (6 to 64 Years) (1 - PCV) Pneumococcal Vaccine: Pediatrics (0 to 5 Years) and At-Risk Patients (6 to 64 Years) (1 - PCV) [facility] Start: 06-05-1987 MMR Vaccines (1 of 1 - Standard series) MMR Vaccines (1 of 1 - Standard series) [facility] Start: 06-05-1987 Varicella vaccination Varicella Vaccines (1 of 2 - 2-dose childhood series) [facility] Start: 1986 COVID-19 Vaccine (#1) COVID-19 Vaccine (#1) [facility] Start: 1986 Hepatitis B Vaccines (1 of 3 - 3-dose series) Hepatitis B Vaccines (1 of 3 - 3-dose series) [facility] Start: 1986 HIV screening HIV Screening [facility] Start: 1986 Lipid panel Lipid Panel [facility] Start: 1986 Yearly Adult Physical Yearly Adult Physical [facility] Payers Date Payer Category Payer Private Health Insurance [id number] 2017 Private Health Insurance 2013 Private Health Insurance [id number] 1986 Unknown [id number] 2.16. [id number] 1986 Unknown [id number] .16. [id number] 1986 Unknown [id number] .16. [id number] 1986 Unknown [id number] .16. [id number] 1986 Unknown [id number] 2.16.8 40.1.330408.3.579.2.903 1986 Unknown [id number] 2.16.84 0.1.598997.3.579.2.717 1986 Unknown [id number] 2.16.84 0.1.414664.3.579.2.7 1986 Unknown [id number] 2.16.84 0.1.415661.3.579.2. 1986 Unknown [id number] 2.16.84 0.1.219244.3.579.2. 1986 Unknown [id number] 2.16.84 0.1.662919.3.579.2. 1986 Unknown [id number] 2.16.84 0.1.975567.3.579.2. 1986 Unknown [id number] 2.16.84 0.1.183674.3.579.2. 1986 Unknown [id number] 2.16.84 0.1.101345.3.579.2. 1986 Unknown [id number] 2.16.8 40.1.655000.3.579.2.9 1986 Unknown [id number] 2.16.8 40.1.276215.3.579.2.9 1986 Unknown [id number] 2.16.8 40.1.568462.3.579.2.1068 1986 Unknown [id number] 2.16.8 40.1.597056.3.579.2.9 1986 Unknown [id number] 2.16.84 0.1.152243.3.579.2.3 1986 Unknown [id number] 2.16.84 0.1.083371.3.579.2.1243 Unknown Social History Date Type Detail Facility Start: [facility]27-[facility] Work Phone: Start: 1985 Sex Assigned At Not on file [facility] Work Phone: Start: 04-22-2023 [facility] Work Phone: [facility] tobacco [facility] Start: 04-22-2023 Tobacco use and exposure Smokeless tobacco non-user [facility] Work Phone: Start: 04-22-2023 History of Social function [facility] Work Phone: Start: 04-22-2023 [facility] Start: 04-12-2023 End: 04-27-2023 Exposure to SARS-CoV-2 (event) Not sure [facility] History of Present illness Narrative 04-27-2023 Adelita Garcia APRN-HEAVY EQUIPMENT RENTAL MANAGER - 04/27/2023 1:15 PM EST Note Date & Type Note Facility 04-27-2023 History of Present illness Narrative 37 y.o. male presents for evaluation of right ear pain and nasal congestion that has been ongoing for the past week. Patient states he was seen 04/22 and treated with Augmentin for OM. States symptoms began to get better but then worsened 2 days ago and have not began to improve since. States he can get dizzy at times. Denies chest pain, shortness of breath, visual changes, headache or any other associated symptom or complaint. No OTC meds or symptom management. No other complaints. Vitals: 04/27/23 1319 BP: (!) 148/103 Pulse: 82 Resp: 18 Temp: 36.4 C (97.5 F) SpO2: 98% No Known Allergies Medication Documentation Review Audit Reviewed by Rossi King MA ([employer]) on 04/27/23 at 1319 Medication Order Taking? Sig Documenting Provider Last Dose Status albuterol 90 mcg/actuation inhaler [id number] No Inhale twice a day. Historical ProviderMD Not Taking Active amoxicillin-pot clavulanate (Augmentin) 875-125 mg tablet [id number] Yes Take 1 tablet by mouth twice daily (every 12 hours) for 7 days. Take with food. Historical Provider, Taking Active azelastine (Astelin) 137 mcg (0.1 %) nasal spray [id number] Yes Administer 2 sprays into each nostril 2 times a day for 10 days. Use in each nostril as directed Damir Elisha CCEILIA Almanzar Taking Active cetirizine (ZyrTEC) 10 mg tablet [id number] Yes Take 1 tablet (10 mg) by mouth once daily for 15 days. Damir K CECILIA Almanzar Taking Active predniSONE (Deltasone) 10 mg tablet [id number] Yes Take 3 tablets (30 mg) by mouth once daily for 7 days. Damir Tello CECILIA Almanzar Taking Active Past Medical History: Diagnosis Date Personal history of other diseases of the musculoskeletal system and connective tissue History of chronic back pain Past Surgical History: Procedure Laterality Date OTHER SURGICAL HISTORY 11/02/2016 Oral Surgery Tooth Extraction [place] Tooth ROS See HPI Physical Exam Vitals and nursing note reviewed. Constitutional: Appearance: He is ill-appearing (mildly). HENT: Head: Normocephalic and atraumatic. Right Ear: Ear canal and external ear normal. A middle ear effusion (suppurative) is present. Tympanic membrane is erythematous and bulging. Left Ear: Tympanic membrane, ear canal and external ear normal. No middle ear effusion. Tympanic membrane is not erythematous or bulging. Nose: Congestion present. Mouth/Throat: Mouth: Mucous membranes are moist. Pharynx: Oropharynx is clear. Eyes: Extraocular Movements: Extraocular movements intact. Conjunctiva/sclera: Conjunctivae normal. Pupils: Pupils are equal, round, and reactive to light. Cardiovascular: Rate and Rhythm: Normal rate and regular rhythm. Pulses: Normal pulses. Heart sounds: Normal heart sounds. Pulmonary: Effort: Pulmonary effort is normal. Breath sounds: Normal breath sounds. Skin: General: Skin is warm. Capillary Refill: Capillary refill takes less than 2 seconds. Neurological: General: No focal deficit present. Mental Status: He is alert and oriented to person, place, and time. Psychiatric: Mood and Affect: Mood normal. Behavior: Behavior normal. Assessment/Plan/MDM Saul was seen today for uri. Diagnoses and all orders for this visit: Recurrent acute suppurative otitis media of right ear with spontaneous rupture of tympanic membrane (Primary) - levoFLOXacin (Levaquin) 500 mg tablet; Take 1 tablet (500 mg) by mouth once every 24 hours for 7 days. - predniSONE (Deltasone) 20 mg tablet; Take 1 tablet (20 mg) by mouth once daily for 5 days. Encouraged pt to continue otc cold remedies PRN, push by mouth fluids and rest. Patient's clinical presentation is otherwise unremarkable at this time. Patient is discharged with instructions to follow-up with primary care or seek emergency medical attention for worsening symptoms or any new concerns. Adelita Garcia CNP [facility] [phone] documented in this encounter [facility] Work Phone: History of Present illness Narrative 04-22-2023 Damir Almanzar PA-C - 04/22/2023 10:50 AM EST Note Date & Type Note Facility 04-22-2023 History of Present illness Narrative [facility]EL[facility] NOTE: Name: Saul Richter, 37 y.o. CSN:[id number] PCP: Michael Galindo MD ALL: No Known Allergies History: Chief Complaint: URI (Sinus pressure, cough, sore throat x 1 week. Evaluated at different urgent care yesterday, started on Augmentin wanting second opinion ) and Earache (Rt ear fullness x 2 days ) Encounter Date: 04/22/2023 HPI: The history was obtained from the patient. Saul is a 37 y.o. male, who presents with a chief complaint of URI (Sinus pressure, cough, sore throat x 1 week. Evaluated at different urgent care yesterday, started on Augmentin wanting second opinion ) and Earache (Rt ear fullness x 2 days ) PMHx: Past Medical History: Diagnosis Date Personal history of other diseases of the musculoskeletal system and connective tissue History of chronic back pain Current Outpatient Medications Medication Sig Dispense Refill albuterol 90 mcg/actuation inhaler Inhale twice a day. amoxicillin-pot clavulanate (Augmentin) 875-125 mg tablet Take 1 tablet by mouth twice daily (every 12 hours) for 7 days. Take with food. azelastine (Astelin) 137 mcg (0.1 %) nasal spray Administer 2 sprays into each nostril 2 times a day for 10 days. Use in each nostril as directed 30 mL 0 cetirizine (ZyrTEC) 10 mg tablet Take 1 tablet (10 mg) by mouth once daily for 15 days. 15 tablet 0 predniSONE (Deltasone) 10 mg tablet Take 3 tablets (30 mg) by mouth once daily for 7 days. 21 tablet 0 No current facility-administered medications for this visit. PMSx: Past Surgical History: Procedure Laterality Date OTHER SURGICAL HISTORY 11/02/2016 Oral Surgery Tooth Extraction [place] Tooth Fam Hx: No family history on file. SOC. Hx: Social History Socioeconomic History Marital status: Spouse name: Not on file Number of children: Not on file Years of education: Not on file Highest education level: Not on file Occupational History Not on file Tobacco Use Smoking status: Every Day Types: Cigarettes Smokeless tobacco: Never Substance and Sexual Activity Alcohol use: Not on file Drug use: Not on file Sexual activity: Not on file Other Topics Concern Not on file Social History Narrative Not on file Social Determinants of Health Financial Resource Strain: Not on file Food Insecurity: Not on file Transportation Needs: Not on file Physical Activity: Not on file Stress: Not on file Social Connections: Not on file Intimate Partner Violence: Not on file Housing Stability: Not on file Vitals: 04/22/23 1140 BP: 134/89 Pulse: 74 Resp: 16 Temp: 36.8 C (98.3 F) SpO2: 98% 118 kg (260 lb) Physical Exam Constitutional: Appearance: Normal appearance. He is normal weight. HENT: Head: Normocephalic and atraumatic. Right Ear: A middle ear effusion is present. Tympanic membrane is erythematous. Left Ear: No middle ear effusion. Nose: Congestion present. Mouth/Throat: Lips: [place]. Mouth: Mucous membranes are moist. Pharynx: Oropharynx is clear. Eyes: Extraocular Movements: Extraocular movements intact. Cardiovascular: Rate and Rhythm: Normal rate and regular rhythm. Pulmonary: Effort: Pulmonary effort is normal. Breath sounds: Normal breath sounds. Abdominal: General: Abdomen is flat. Musculoskeletal: General: Normal range of motion. Cervical back: Normal range of motion and neck supple. Skin: General: Skin is warm. Capillary Refill: Capillary refill takes less than 2 seconds. Neurological: Mental Status: He is alert and oriented to person, place, and time. Psychiatric: Behavior: Behavior normal. COURSE/MEDICAL DECISION MAKING: Saul is a 37 y.o., who presents with a working diagnosis of 1. Non-recurrent acute suppurative otitis media of right ear without spontaneous rupture of tympanic membrane 2. Eustachian tube disorder, right with a differential to include: Influenza, parainfluenza, rhinovirus, adenovirus, metapneumovirus, coronavirus, COVID-19, postnasal drip, strep pharyngitis, GERD, retropharyngeal abscess, tonsillitis, adenitis, seasonal allergies Tx with prednisone, continue with Augmentin, encourage he push fluids. Melba DEL CASTILLO Student documented in this encounter [facility] Work Phone: Evaluation note Note Date & Type Note Facility documented in this encounter [facility] Work Phone: Evaluation note Note Date & Type Note Facility documented in this encounter [facility] Work Phone: Summary Purpose Family History No Family History Records FoundNo Family History Records FoundNo Family History Records FoundNo Family History Records FoundNo Family History Records FoundNo Family History Records FoundNo Family History Records FoundNo Family History Records Found Advance Directives No Advanced Directives Records FoundNo Advanced Directives Records FoundNo Advanced Directives Records FoundNo Advanced Directives Records FoundNo Advanced Directives Records FoundNo Advanced Directives Records FoundNo Advanced Directives Records FoundNo Advanced Directives Records Found Additional Source Comments (unrecognized sect ion and content) No Status Records FoundNo Status Records FoundNo Status Records FoundNo Status Records FoundNo Status Records FoundNo Status Records FoundNo Status Records FoundNo Status Records Found INFORMATION SOURCE (unrecogn ized section and content) DATE CREATED AUTHOR AUTHOR'S ORGANIZ ATION 03/15/2018 [facility] DATE CREATED AUTHOR AUTHOR'S ORGANIZ ATION 03/18/2018 [facility] DATE CREATED AUTHOR AUTHOR'S ORGANIZ ATION 04/09/2018 [facility] DATE CREATED AUTHOR AUTHOR'S ORGANIZ ATION 11/13/2020 [facility] DATE CREATED AUTHOR AUTHOR'S ORGANIZ ATION 09/29/2022 [facility] DATE CREATED AUTHOR AUTHOR'S ORGANIZ ATION 04/04/2023 [facility] DATE CREATED AUTHOR AUTHOR'S ORGANIZ ATION 04/28/2023 [facility] <item><item><item><item><item> Privacy Markings (unrecogniz ed section and content) Section Author: Keeley Francois PROHIBITION ON REDISCLOSURE OF CONFIDENTIAL INFORMATION This notice accompanies a disclosure of information concerning a client made to you with the consent of such client. Section Author: Keeley Francois PROHIBITION ON REDISCLOSURE OF CONFIDENTIAL INFORMATION This notice accompanies a disclosure of information concerning a client made to you with the consent of such client. Section Author: Keeley Francois PROHIBITION ON REDISCLOSURE OF CONFIDENTIAL INFORMATION This notice accompanies a disclosure of information concerning a client made to you with the consent of such client. Section Author: Keeley Francois PROHIBITION ON REDISCLOSURE OF CONFIDENTIAL INFORMATION This notice accompanies a disclosure of information concerning a client made to you with the consent of such client. Section Author: Keeley Francois PROHIBITION ON REDISCLOSURE OF CONFIDENTIAL INFORMATION This notice accompanies a disclosure of information concerning a client made to you with the consent of such client. Reason for Visit (unrecogniz ed section and content) Reason Comments URI Right ear and sinus congestion X 1 week Care Teams (unrecognized sec tion and content) Clinical Education Manager Relationship Specialty Start Date End Date Michael Galindo MD [address] [place] [address] PCP - General 01/23/19 FOR RECORDS PERTAINING TO PATIENTS WHO ARE OR HAVE BEEN ENROLLED IN A CHEMICAL DEPENDENCY/SUBSTANCEABUSE PROGRAM, SOME INFORMATION MAY BE OMITTED. This clinical summary was aggregated from multiple sources. Caution should be exercised in using it in the provision of clinical care. This summary normalizes information from multiple sources, and as a consequence, information in this document may materially change the coding, format and clinical context of patient data. In addition, data may be omitted in some cases. CLINICAL DECISIONS SHOULD BE BASED ON THE PRIMARY CLINICAL RECORDS. [employer]. provides no warranty or guarantee of the accuracy or completeness of information in this document.
[2023-05-10 22:18] LABS: ALB/GLOB Ratio 1.1 RATIO (0.9-2.4); AST(SGOT) 32 U/L (15-37); Alanine Aminotransfer ALT/SGPT 80 U/L (16-61); Albumin, Serum 4.1 g/dL (3.2-5.0); Alkaline Phosphatase 54 U/L (45-117); Anion Gap 7 (5-15); BUN 8 mg/dL (7-18); BUN/Creat Ratio 8.9 RATIO (10-20); Calcium,Total 9.3 mg/dL (8.5-10.1); Chloride 105 mmol/L (98-107); EST Glomerular Filtration Rate 101 mL/min (>60); Est Glom Filt Rate - Afr Amer 122 mL/min (>60); Estimated Creatinine Clearance 158.91 ml/min; Globulin 3.7 g/dL (2.2-4.2); Glucose 98 mg/dL (74-106); Potassium 3.6 mmol/L (3.5-5.1); Protein, Total 7.8 g/dL (6.4-8.2); Sodium Level 136 mmol/L (136-145)
--- NOTE | 2023-05-10 22:41 | EX.ED.SAOD ---
HPI History of Present Illness Chief Complaint: Substance Abuse Narrative Narrative: 37-year-old male with history of EtOH abuse presents for detox. Patient states last drink was just prior to arrival when he believes he drink about a 12 pack today. Patient typically drinks a 12 pack every day. Patient states after his last admission for detox he made it 42 days. He thought he could be normal again and tried to have 1 drink but began drinking heavily again. Has been drinking since then. He states at times he might drink wine but mostly its beer. Denies other drug abuse. States he will withdrawal if he does not drink. He states last night he tried not to drink and became sweaty and nauseous and so to his sheets. PFSH PFSH Medical History Alcohol abuse Hypertension Smoker Home Medications NK 08/11/22 [History Last Taken Unknown] Allergy/AdvReac Type Severity Reaction Status Date / Time No Known Allergies Allergy Verified 05/10/23 21:24 Social History Smoking Status: Current every day smoker tobacco type: cigarettes ROS ROS ED Constitutional Constitutional ED: Reports sweats; Denies chills or fever(s) Eyes Eyes: Denies blurry vision or change in vision ENT ENT ED: Denies ear pain or sore throat Cardiovascular Cardiovascular: Denies chest pain, palpitations or racing heartbeat Respiratory/Chest Respiratory/Chest: Denies cough, dyspnea or sputum Gastrointestinal Gastrointestinal: Reports abdominal pain and nausea; Denies constipation, diarrhea or vomiting Genitourinary Genitourinary ED: Denies dysuria, hematuria or urinary frequency Musculoskeletal Musculoskeletal: Denies arthralgias, myalgias or neck pain Integumentary Denies abscess, Abrasions or rash Neurologic Neurologic: Denies headache(s), paresthesias or weakness Psychiatric Psychiatric: Denies anxiety, depression, suicidal ideation or suicidal thoughts Endocrine Endocrinology: Denies polydipsia or polyuria EXAM Physical Exam Const Vital Signs: 05/10/23 21:25 Temperature 97.7 F L Temperature Source Temporal Pulse Rate 79 Respiratory Rate 18 Blood Pressure 180/116 H Blood Pressure Mean 137 Pulse Ox 99 Oxygen Delivery Method Room Air Positive well nourished General Appearance ED: NAD; Negative for pallor HEENT Reports moist mucous membranes Eyes PERRL and EOMs intact bilaterally Chest Wall inspection of chest normal Resp normal respiratory effort and clear to auscultation bilaterally Cardio regular rate and regular rhythm Neuro oriented x3 and CN's II-XII intact bilaterally Sensorium / Orientation: alert Psych mental status grossly normal Skin General Skin Exam: Negative for jaundice or pallor MDM MDM MDM Narrative Medical decision making narrative: Patient presenting for alcohol detox. Expelled 12 pack a day. EtOH level today is 205. He states he is not currently withdrawing. Screening lab work is obtained the CBC shows mild leukocytosis at 13.3. Hemoglobin 17.8. Platelets are normal at 210. Renal function and electrolytes within normal limits. LFTs are normal with exception of an ALT of 80. Patient vital signs are stable and he is afebrile. At this point we will speak to the hospital for admission. Impression: 1. EtOH intoxication 2. Presentation for EtOH detox Lab Data Attestation: I reviewed the patient's lab results. Labs: Laboratory Results - last 24 hr 05/10/23 05/10/23 21:52 22:24 WBC 13.3 H RBC 5.43 Hgb 17.8 H Hct 52.2 MCV 96.1 H MCH 32.8 H MCHC 34.1 RDW Std Deviation 43.0 RDW Coeff of Maia 12.0 Plt Count 210 MPV 9.6 Immature Gran % (Auto) 0.600 Neut % (Auto) 65.7 Lymph % (Auto) 23.4 [place] % (Auto) 8.2 Eos % (Auto) 1.3 Baso % (Auto) 0.8 Absolute Neuts (auto) 8.7 H Absolute Lymphs (auto) 3.10 Nucleated RBC % 0 Sodium 136 Potassium 3.6 Chloride 105 Carbon Dioxide 24.0 Anion Gap 7 BUN 8 Creatinine 0.90 Estim Creat Clear Calc 158.91 Est GFR (MDRD) Af Amer 122 Est GFR (MDRD) Non-Af 101 BUN/Creatinine Ratio 8.9 L Glucose 98 Calcium 9.3 Total Bilirubin 0.60 AST 32 ALT 80 H Alkaline Phosphatase 54 Total Protein 7.8 Albumin 4.1 Globulin 3.7 Albumin/Globulin Ratio 1.1 Ur Drug Screen Comment Ethyl Alcohol 205.0 Discharge Plan Triage Chief Complaint: Substance Abuse ED Provider: Jeffry Mclain Dx/Rx/DC Orders Prescriptions: No Action NK Primary Care Provider: Care Physician,No Primary Referrals: Care Physician,No Primary [Primary Care Provider] -
[2023-05-10 22:50] LABS: Amphetamine Urine VISTA NEGATIVE (<1000 ng/mL); Barbiturate Urine VISTA NEGATIVE (< 200 ng/mL); Benzodiazepine Urine VISTA NEGATIVE (< 200 ng/mL); Cocaine Urine VISTA NEGATIVE (< 300 ng/mL); Ecstacy Urine VISTA NEGATIVE (< 500 ng/mL); Methadone Urine VISTA NEGATIVE (< 300 ng/mL); PCP Urine VISTA NEGATIVE (< 25 ng/mL); THC Urine VISTA NEGATIVE (< 50 ng/mL); Vista UDS pH Range 5
--- NOTE | 2023-05-10 23:00 | HP.PCM_ITS ---
[facility] - General General Date of Admission: 05/10/23 Date of Service: 05/10/23 Chief Complaint: Requesting alcohol withdrawal treatment HPI Narrative DELORES FAUSTIN, is a 37 M who presents to the emergency room with chief complaint of requesting alcohol withdrawal treatment. Patient has a chronic alcohol abuse since the age of 20 and was admitted to our facility in July of this year for the same reason. Patient states he went 41 days sober recently but was falling off the wagon. He tried to go without alcohol the entire day yesterday but woke up drenched in sweat. He feels motivated to continue life of sobriety and wants to go through withdrawal with support. Patient denies any chest pain or shortness of breath fever or chills at present time. The patient's last drink was earlier today. He will be admitted to general medical floor placed on alcohol withdrawal protocol. [facility] Medical History Alcohol abuse Hypertension Smoker Home Medications NK 08/11/22 [History Last Taken Unknown] Allergy/AdvReac Type Severity Reaction Status Date / Time No Known Allergies Allergy Verified 05/10/23 21:24 Social History Smoking Status: Current every day smoker tobacco type: cigarettes ROS Constitutional Constitutional: Denies chills or fever(s) Eyes Eyes: Denies blurry vision ENT HEENT: Denies abnormal hearing Cardiovascular Cardiovascular: Denies chest pain Respiratory/Chest Respiratory/Chest: Denies shortness of breath at rest Gastrointestinal Gastrointestinal: Denies abdominal pain Genitourinary Genitourinary: Denies dysuria Musculoskeletal Musculoskeletal: Denies back pain Integumentary Integumentary: Denies jaundice Neurologic Neurologic: Denies abnormal speech Psychiatric Psychiatric: Reports anxiety Vital Signs Vital Signs Vital Signs: 05/10/23 21:25 Temperature 97.7 F L Temperature Source Temporal Pulse Rate 79 Respiratory Rate 18 Blood Pressure 180/116 H Blood Pressure Mean 137 Pulse Ox 99 Oxygen Delivery Method Room Air Weight Weight: 273 lb 14.4 oz Body Mass Index (BMI) 35.2 Physical Exam Const oriented x3 General Appearance: cooperative and well developed HEENT normocephalic and head/scalp atraumatic Eyes PERRL Neck no lymphadenopathy Lymph Lymphatic: no lymphadenopathy noted Resp normal respiratory effort and normal air movement Cardio regular rate, regular rhythm, S1 normal heart sound and S2 normal heart sound GI normal to inspection, nondistended, normoactive bowel sounds Extremity normal capillary refill Skin General Skin Exam: no breakdown Neuro CN's II-XII intact bilaterally Psych thought process normal Mood & Affect: anxious Results Lab / Micro Data 05/10/23 21:52 05/10/23 21:52 Labs: Laboratory Results - last 24 hr 05/10/23 21:52: WBC 13.3 H, RBC 5.43, Hgb 17.8 H, Hct 52.2, MCV 96.1 H, MCH 32.8 H, MCHC 34.1, RDW Std Deviation 43.0, RDW Coeff of Maia 12.0, Plt Count 210, MPV 9.6, Immature Gran % (Auto) 0.600, Neut % (Auto) 65.7, Lymph % (Auto) 23.4, [place] % (Auto) 8.2, Eos % (Auto) 1.3, Baso % (Auto) 0.8, Absolute Neuts (auto) 8.7 H, Absolute Lymphs (auto) 3.10, Nucleated RBC % 0, Sodium 136, Potassium 3.6, Chloride 105, Carbon Dioxide 24.0, Anion Gap 7, BUN 8, Creatinine 0.90, Estim Creat Clear Calc 158.91, Est GFR (MDRD) Af Amer 122, Est GFR (MDRD) Non-Af 101, BUN/Creatinine Ratio 8.9 L, Glucose 98, Calcium 9.3, Total Bilirubin 0.60, AST 32, ALT 80 H, Alkaline Phosphatase 54, Total Protein 7.8, Albumin 4.1, Globulin 3.7, Albumin/Globulin Ratio 1.1, Ethyl Alcohol 205.0 05/10/23 22:24: Urine Opiates Screen NEGATIVE, Urine Methadone Screen NEGATIVE, Ur Barbiturates Screen NEGATIVE, Ur Phencyclidine Scrn NEGATIVE, Ur Amphetamines Screen NEGATIVE, MDMA (Ecstasy) Screen NEGATIVE, U Benzodiazepines Scrn NEGATIVE, Urine Cocaine Screen NEGATIVE, U Cannabinoids Screen NEGATIVE, Ur Drug Screen Comment Assessment & Plan Assessment/Plan (1) Alcohol abuse: PLAN: Plan 1 alcohol abuse requesting withdrawal?admit patient to general medical floor initiate CIWA protocol with case management support for discharge planning Charges/Coding Visit Charges Inpatient E&M: [id number] Init Hosp L2
[2023-05-10 23:01] VITALS: BP 160/105; PULSE 79; RESP 18; TEMP 36.8; O2SAT 97
--- OUTSIDE RECORDS SUMMARY | 2023-05-10 23:15 | XMS RPT_ITS | CCD ---
Author Name Unknown Address [address] [place] [address] Organization [facility] Care Team Providers Care Database Developer Name Role Phone Unavailable Unavailable Unavailable Stencel, Michael Burdick Unavailable Unavailable Stencel, Michael Burdick Unavailable Unavailable CHOPKOLISA Unavailable Unavail able STENCEL, MICHAEL CASTILLO Unavailable Unavailab Julissa Georges Attending Unavailable Stencel, Primary Care Unavailable Julissa Ryan Admitting Unavailable Stencel, Attending Unavailable Stencel, Primary [...] Attending Michael Horan MD Primary Care Provider MICHAEL GALINDO Primary Care Unavailable DAMIR ALMANZAR Attending Unavailable MICHAEL GALINDO Primary Care Unavailable ADELITA GARCIA Attending Unavailable Allergies Allergy Classification Reported Allergen(s) Allergy Type Date of Onset Reaction(s) Facility (1 source) No Known Medication Allergies; Translations: [No Known Medication Allergies] Propensity to adverse reactions to drug (disorder) [facility] Medications Current Medications Medication Drug Class(es) Dates Sig (Normalized) Sig (Original) [id number] 200 actuat albuterol 0.09 mg/actuat metered dose [...] 13:19-0500 Body height 188 cm Adelita Garcia STEAM FITTER SUPERVISOR MAINTENANCEI Gotchu Work Phone: [facility] 04-27-2023 13:19-0500 Body mass index (BMI) [Ratio] 33.38 kg/m2 Adelita Garcia STEAM FITTER SUPERVISOR MAINTENANCEI Gotchu Work Phone: [facility] 04-27-2023 13:19-0500 Body temperature 97.5 [degF] Adelita Garcia STEAM FITTER SUPERVISOR MAINTENANCE-BEHAVIORAL SCIENCES INSTRUCTOR Work Phone: [facility] 04-27-2023 13:19-0500 Body weight 117.94 kg Adelita Garcia STEAM FITTER SUPERVISOR MAINTENANCE-BEHAVIORAL SCIENCES INSTRUCTOR Work Phone: [facility] 04-27-2023 13:19-0500 Diastolic blood pressure 103 mm[Hg] Adelita Garcia STEAM FITTER SUPERVISOR MAINTENANCE-BEHAVIORAL SCIENCES INSTRUCTOR Work Phone: [facility] 04-27-2023 13:19-0500 Heart rate 82 /min Adelita Garcia STEAM FITTER SUPERVISOR MAINTENANCE-BEHAVIORAL SCIENCES INSTRUCTOR Work Phone: [facility] 04-27-2023 13:19-0500 Respiratory rate 18 /min Adelita Garcia STEAM FITTER SUPERVISOR MAINTENANCE-BEHAVIORAL SCIENCES INSTRUCTOR Work Phone: [facility] 04-27-2023 13:19-0500 SaO2% (BldA) [Mass fraction] 98 % Adelita Garcia STEAM FITTER SUPERVISOR MAINTENANCE-BEHAVIORAL SCIENCES INSTRUCTOR Work Phone: [facility] 04-27-2023 13:19-0500 Systolic blood pressure 148 mm[Hg] Adelita Garcia STEAM FITTER SUPERVISOR MAINTENANCE-BEHAVIORAL SCIENCES INSTRUCTOR Work Phone: [facility] 04-22-2023 11:40-0500 Body height 188 cm Damir Jenelle PA-C Work Phone: [facility] 04-22-2023 11:40-0500 Body mass index (BMI) [Ratio] 33.38 kg/m2 Damir Jenelle PA-C Work Phone: [phone] [place] [address] 04-22-2023 11:40-0500 Body temperature 98.29 [degF] Damir Jenelle PA-C Work Phone: [phone] [place] [address] 04-22-2023 11:40-0500 Body weight 117.94 kg Damir Jenelle PA-C Work Phone: [facility] 04-22-2023 11:40-0500 Diastolic blood pressure 89 mm[Hg] Damir Jenelle PA-C Work Phone: [facility] 04-22-2023 11:40-0500 Heart rate 74 /min Damir Jenelle PA-C Work Phone: [facility] 04-22-2023 11:40-0500 Respiratory rate 16 /min Damir Jenelle PA-C Work Phone: [facility] 04-22-2023 11:40-0500 SaO2% (BldA) [Mass fraction] 98 % Damir Jenelle PA-C Work Phone: [facility] 04-22-2023 11:40-0500 Systolic blood pressure 134 mm[Hg] Damir Jenelle PA-C Work Phone: [phone] [place] [address] 09-25-2022 19:08-0400 Body height 190.5 cm Stencel Other Phone: [facility] 09-25-2022 19:08-0400 Body temperature 98.6 [degF] Stencel Other Phone: [facility] 09-25-2022 19:08-0400 Body weight 120.3 kg Stencel Other Phone: [facility] 09-25-2022 19:08-0400 Diastolic blood pressure 96 mm[Hg] Stencel Other Phone: [facility] 09-25-2022 19:08-0400 Heart rate 77 /min Stencel Other Phone: [facility] 09-25-2022 19:08-0400 Respiratory rate 16 /min Stencel Other Phone: [facility] 09-25-2022 19:08-0400 SaO2% (BldA) [Mass fraction] 98 % Stencel Other Phone: [facility] 09-25-2022 19:08-0400 Systolic blood pressure 164 mm[Hg] Stencel Other Phone: [facility] 09-25-2022 18:02-0400 Body height 190.5 cm Stencel Other Phone: [facility] 09-25-2022 18:02-0400 Body temperature 97.88 [degF] Stencel Other Phone: [facility] 09-25-2022 18:02-0400 Diastolic blood pressure 85 mm[Hg] Stencel Other Phone: [facility] 09-25-2022 18:02-0400 Heart rate 82 /min Stencel Other Phone: [facility] 09-25-2022 18:02-0400 SaO2% (BldA) [Mass fraction] 97 % Stencel Other Phone: [facility] 09-25-2022 18:02-0400 Systolic blood pressure 155 mm[Hg] Stencel Other Phone: [facility] 12-18-2021 11:21-0400 Body height 188 cm Stencel Other Phone: [facility] 12-18-2021 11:21-0400 Body temperature 97.7 [degF] Stencel Other Phone: [facility] 12-18-2021 11:21-0400 Diastolic blood pressure 94 mm[Hg] Stencel Other Phone: [facility] 12-18-2021 11:21-0400 Heart rate 79 /min Stencel Other Phone: [facility] 12-18-2021 11:21-0400 SaO2% (BldA) [Mass fraction] 98 % Stencel Other Phone: [facility] 12-18-2021 11:21-0400 Systolic blood pressure 150 mm[Hg] Stencel Other Phone: [facility] 01-29-2021 12:22-0500 Body height 190.5 cm Stencel Other Phone: [facility] 01-29-2021 12:22-0500 Body temperature 97.88 [degF] Stencel Other Phone: [facility] 01-29-2021 12:22-0500 Diastolic blood pressure 90 mm[Hg] Stencel Other Phone: [facility] 01-29-2021 12:22-0500 Heart rate 87 /min Stencel Other Phone: [facility] 01-29-2021 12:22-0500 SaO2% (BldA) [Mass fraction] 96 % Stencel Other Phone: [facility] 01-29-2021 12:22-0500 Systolic blood pressure 132 mm[Hg] Michael Goffhao Other Phone: [facility] 11-05-2020 13:43-0400 Body height 190 cm Josie Other Phone: [facility] 11-05-2020 13:43-0400 Body temperature 98.06 [degF] Michael Galindo Other Phone: [facility] 11-05-2020 13:43-0400 Diastolic blood pressure 100 mm[Hg] Michael Galindo Other Phone: [facility] 11-05-2020 13:43-0400 Heart rate 80 /min Josie Other Phone: [facility] 11-05-2020 13:43-0400 SaO2% (BldA) [Mass fraction] 97 % Josie Other Phone: [facility] 11-05-2020 13:43-0400 Systolic blood pressure 152 mm[Hg] Josie Other Phone: [facility] Encounters Encounter Date Encounter Type Care Provider Facility Start: 04-27-2023 End: 04-27-2023 [facility] Start: 04-27-2023 End: 04-27-2023 Patient encounter procedure Adelita Garcia STEAM FITTER SUPERVISOR MAINTENANCE-BEHAVIORAL SCIENCES INSTRUCTOR Work Phone: [facility] Plan of Treatment Date Care Activity Detail Author Start: 2036 Zoster Vaccines (1 of 2) Zoster Vaccines (1 of 2) [facility] Start: 11-20-2022 Influenza vaccination Influenza Vaccine (#1) [facility] Start: 2008 DTaP/Tdap/Td Vaccines (1 - Tdap) DTaP/Tdap/Td Vaccines (1 - Tdap) [facility] Start: 2005 Hepatitis A Vaccines (1 of 2 - Risk 2-dose series) Hepatitis A Vaccines (1 of 2 - Risk 2-dose series) [facility] Start: 2004 Hepatitis C screening Hepatitis C Screening [facility] Start: 1992 Pneumococcal Vaccine: Pediatrics (0 to 5 Years) and At-Risk Patients (6 to 64 Years) (1 - PCV) Pneumococcal Vaccine: Pediatrics (0 to 5 Years) and At-Risk Patients (6 to 64 Years) (1 - PCV) [facility] Start: 06-05-1987 MMR Vaccines (1 of 1 - Standard series) MMR Vaccines (1 of 1 - Standard series) [facility] Start: 06-05-1987 Varicella vaccination Varicella Vaccines (1 of 2 - 2-dose childhood series) [facility] Start: 1986 COVID-19 Vaccine (#1) COVID-19 Vaccine (#1) [facility] Start: 1986 Hepatitis B Vaccines (1 of 3 - 3-dose series) Hepatitis B Vaccines (1 of 3 - 3-dose series) [facility] Start: 1986 HIV screening HIV Screening [facility] Start: 1986 Lipid panel Lipid Panel [facility] Start: 1986 Yearly Adult Physical Yearly Adult Physical [facility] Payers Date Payer Category Payer Private Health Insurance [id number] 2017 Private Health Insurance 2013 Private Health Insurance [id number] 1986 Unknown [id number] 2.16. [id number] 1986 Unknown [id number] .16. [id number] 1986 Unknown [id number] .16. [id number] 1986 Unknown [id number] .16. [id number] 1986 Unknown [id number] 2.16.8 40.1.604499.3.579.2.903 1986 Unknown [id number] 2.16.84 0.1.062294.3.579.2.717 1986 Unknown [id number] 2.16.84 0.1.694291.3.579.2.7 1986 Unknown [id number] 2.16.84 0.1.508645.3.579.2. 1986 Unknown [id number] 2.16.84 0.1.295623.3.579.2. 1986 Unknown [id number] 2.16.84 0.1.346740.3.579.2. 1986 Unknown [id number] 2.16.84 0.1.163010.3.579.2. 1986 Unknown [id number] 2.16.84 0.1.285945.3.579.2. 1986 Unknown [id number] 2.16.84 0.1.272194.3.579.2. 1986 Unknown [id number] 2.16.8 40.1.447025.3.579.2.9 1986 Unknown [id number] 2.16.8 40.1.260472.3.579.2.9 1986 Unknown [id number] 2.16.8 40.1.324573.3.579.2.1068 1986 Unknown [id number] 2.16.8 40.1.599712.3.579.2.9 1986 Unknown [id number] 2.16.84 0.1.226132.3.579.2.3 1986 Unknown [id number] 2.16.84 0.1.582998.3.579.2.1243 Unknown Social History Date Type Detail Facility Start: 10-27-2016 [facility] Work Phone: Start: 1985 Sex Assigned At Not on file [facility] [employer] Work Phone: Start: 04-22-2023 [facility] Work Phone: [facility] tobacco use [facility] Start: 04-22-2023 Tobacco use and exposure Smokeless tobacco non-user [facility] Work Phone: Start: 04-22-2023 History of Social function [facility] Work Phone: Start: 04-22-2023 [facility]: Start: 04-12-2023 End: 04-27-2023 Exposure to SARS-CoV-2 (event) Not sure [facility] History of Present illness Narrative 04-27-2023 Adelita Garcia APRN-BEHAVIORAL SCIENCES INSTRUCTOR - 04/27/2023 1:15 PM EST Note Date [...] Review Audit Reviewed by Rossi King MA (Prototype Engineer Manager) on 04/27/23 at 1319 Medication Order Taking? Sig Documenting Provider Last Dose Status albuterol 90 mcg/actuation inhaler [id number] No Inhale twice a day. Historical ProviderMD Not Taking Active amoxicillin-pot clavulanate (Augmentin) 875-125 mg tablet [id number] Yes Take 1 tablet by mouth twice daily (every 12 hours) for 7 days. Take with food. Historical Provider, Taking Active azelastine (Astelin) 137 mcg (0.1 %) nasal spray [id number] Yes Administer 2 sprays into each nostril 2 times a day for 10 days. Use in each nostril as directed Damir Elisha CECILIA Almanzar Taking Active cetirizine (ZyrTEC) 10 mg tablet [id number] Yes Take 1 tablet (10 mg) by mouth once daily for 15 days. Damir K CECILIA Almanzar Taking Active predniSONE (Deltasone) 10 mg tablet [id number] Yes Take 3 tablets (30 mg) by mouth once daily for 7 days. Damir Tello CECILIA Amlanzar Taking Active Past Medical History: Diagnosis Date Personal history of other diseases of the musculoskeletal system and connective tissue History of chronic back pain Past Surgical History: Procedure Laterality Date OTHER SURGICAL HISTORY 11/02/2016 Oral Surgery Tooth Extraction [place] Tooth ROS See HPI Physical Exam Vitals [...] or any new concerns. Adelita Garcia CNP [facility] [phone] documented in this encounter [facility] Work Phone: History of Present illness Narrative 04-22-2023 Damir Almanzar PA-C - 04/22/2023 10:50 AM EST Note Date & Type Note Facility 04-22-2023 History of Present illness Narrative [facility] NOTE: Name: Saul Richter, 37 y.o. CSN:[id number] PCP: Michael Galindo MD ALL: No Known [...] SURGICAL HISTORY 11/02/2016 Oral Surgery Tooth Extraction [place] Tooth Fam Hx: No family history on [...] ear effusion. Nose: Congestion present. Mouth/Throat: Lips: [place]. Mouth: Mucous membranes are moist. Pharynx: Oropharynx [...] DEL CASTILLO Student documented in this encounter [facility] Work Phone: Evaluation note Note Date & Type Note Facility documented in this encounter [facility] Work Phone: Evaluation note Note Date & Type Note Facility documented in this encounter [facility] Work Phone: Summary Purpose Family History No [...] DATE CREATED AUTHOR AUTHOR'S ORGANIZ ATION 03/15/2018 [facility] DATE CREATED AUTHOR AUTHOR'S ORGANIZ ATION 03/18/2018 [facility] DATE CREATED AUTHOR AUTHOR'S ORGANIZ ATION 04/09/2018 [facility] DATE CREATED AUTHOR AUTHOR'S ORGANIZ ATION 11/13/2020 [facility] DATE CREATED AUTHOR AUTHOR'S ORGANIZ ATION 09/29/2022 [facility] DATE CREATED AUTHOR AUTHOR'S ORGANIZ ATION 04/04/2023 [facility] DATE CREATED AUTHOR AUTHOR'S ORGANIZ ATION 04/28/2023 [facility] <item><item><item><item><item> Privacy Markings (unrecogniz ed section [...] Care Teams (unrecognized sec tion and content) Database Developer Relationship Specialty Start Date End Date Michael Galindo MD [address] [place] [address] PCP - General 01/23/19 FOR RECORDS PERTAINING [...] BE BASED ON THE PRIMARY CLINICAL RECORDS. [facility]. provides no warranty or guarantee of the accuracy or completeness of information in this document.
[2023-05-10 23:36] VITALS: BMI 33.5
[2023-05-10 23:48] VITALS: BP 172/108; PULSE 84; RESP 14; TEMP 36.6; O2SAT 98
[2023-05-11] MEDS: LORazepam 1 MG Tablet PO ×7 (00:12→23:49)
[2023-05-11 00:13] VITALS: BP 172/108; PULSE 84
[2023-05-11] MEDS: Ibuprofen 400 MG Tablet 800 MG PO (00:13)
[2023-05-11] MEDS: hydrALAZINE 20 MG/ML Vial 10 MG IV (00:13)
[2023-05-11] MEDS: 0.9% Saline Lock 10 ML Syringe IV (00:13)
[2023-05-11] MEDS: traZODone 100 MG Tablet PO ×2 (00:13→20:36)
[2023-05-11 00:35] VITALS: BP 148/91
[2023-05-11 04:12] VITALS: BP 123/72; PULSE 90; RESP 14; TEMP 36.6; O2SAT 99
[2023-05-11] MEDS: Thiamine Hydrochloride 100 MG Tablet PO (08:17)
[2023-05-11] MEDS: Folic Acid 1 MG Tablet PO (08:17)
--- NOTE | 2023-05-11 09:09 | ADDICTION ---
clinician met with client to discuss hx of alcohol use and tx options upon discharge. client is feeling ok however appeared to experiencing chills. client was cooperative, however, he avoided eye contact. client reported upon release from detox he will follow up with hindu for support. when asked, client reported no home hindu. client appears ambivalent towards change and sobriety. when asked, he reported his spouse is sober and supportive. clinician will follow up with client on 05/12/23 to further discuss tx options.
[2023-05-11 10:00] VITALS: BP 102/76; PULSE 71; RESP 14; TEMP 36.4; O2SAT 97
--- NOTE | 2023-05-11 12:17 | PN_ITS ---
Subjective Subjective Patient seen and examined. He had no active complaints. Review of systems is otherwise negative. Objective Data Objective Data Vital Signs: Vital Signs Temp Pulse Resp BP Pulse Ox O2 Del Method 97.6 F L 71 14 102/76 97 Room Air 05/11/23 10:00 05/11/23 10:00 05/11/23 10:00 05/11/23 10:00 05/11/23 10:00 05/11/23 10:00 Oxygen Delivery Method Room Air Weight: 261 lb 0.437 oz Body Mass Index (BMI) 33.5 Intake & Output: Intake and Output for Last 24 Hours 05/09/23 05/10/23 05/11/23 23:59 23:59 23:59 Intake Total 1200 / 1200 Balance 1200 / 1200 Lab / Micro Data 05/10/23 21:52 05/10/23 21:52 Labs: Laboratory Results - last 24 hr 05/10/23 21:52: WBC 13.3 H, RBC 5.43, Hgb 17.8 H, Hct 52.2, MCV 96.1 H, MCH 32.8 H, MCHC 34.1, RDW Std Deviation 43.0, RDW Coeff of Maia 12.0, Plt Count 210, MPV 9.6, Immature Gran % (Auto) 0.600, Neut % (Auto) 65.7, Lymph % (Auto) 23.4, [place] % (Auto) 8.2, Eos % (Auto) 1.3, Baso % (Auto) 0.8, Absolute Neuts (auto) 8.7 H, Absolute Lymphs (auto) 3.10, Nucleated RBC % 0, Sodium 136, Potassium 3.6, C hloride 105, Carbon Dioxide 24.0, Anion Gap 7, BUN 8, Creatinine 0.90, Estim Creat Clear Calc 158.91, Est GFR (MDRD) Af Amer 122, Est GFR (MDRD) Non-Af 101, BUN/Creatinine Ratio 8.9 L, Glucose 98, Calcium 9.3, Total Bilirubin 0.60, AST 32, ALT 80 H, Alkaline Phosphatase 54, Total Protein 7.8, Albumin 4.1, Globulin 3.7, Albumin/Globulin Ratio 1.1, Ethyl Alcohol 205.0 05/10/23 22:24: Urine Opiates Screen NEGATIVE, Urine Methadone Screen NEGATIVE, Ur Barbiturates Screen NEGATIVE, Ur Phencyclidine Scrn NEGATIVE, Ur Amphetamines Screen NEGATIVE, MDMA (Ecstasy) Screen NEGATIVE, U Benzodiazepines Scrn NEGATIVE, Urine Cocaine Screen NEGATIVE, U Cannabinoids Screen NEGATIVE, Ur Drug Screen Comment Physical Exam Const alert, oriented x3 and no apparent distress General Appearance: cooperative HEENT normocephalic, head/scalp atraumatic, moist oral mucous membranes and oropharynx normal Eyes PERRL and EOMs intact bilaterally Neck no lymphadenopathy and supple Lymph Lymphatic: no lymphadenopathy noted and no lymphedema noted Resp normal respiratory effort, normal air movement and clear to auscultation bilaterally Cardio regular rate, regular rhythm, S1 normal heart sound, S2 normal heart sound and no murmurs GI normal to inspection, nondistended, normoactive bowel sounds, soft to palpation, non-tender and non-distended Extremity normal capillary refill and no clubbing, cyanosis or edema General Extremity: no tenderness to palpation of joints or extremities Skin General Skin Exam: no breakdown Neuro CN's II-XII intact bilaterally, no focal motor deficits and no sensory deficits noted Motor Exam: strength 5/5 throughout Psych thought process normal and cooperative Assessment & Plan Assessment/Plan (1) Alcohol abuse: PLAN: Plan #Acute alcohol withdrawal * on alcohol withdrawal protocol with phenobarbital * adjunctive meds for symptomatic relief * on thiamine, folic acid and multivite * DVT prophylaxis; Low risk, encourage ambulation Charges/Coding Visit Charges Inpatient E&M: 20084 Subs Hosp L2
[2023-05-11 14:24] VITALS: BP 118/57; PULSE 103; RESP 16; TEMP 36.8; O2SAT 98
[2023-05-11 20:28] VITALS: BP 122/87; PULSE 93; RESP 16; TEMP 37; O2SAT 97
[2023-05-11] MEDS: Ondansetron 8 MG Tablet PO (20:36)
[2023-05-12 03:00] VITALS: BP 151/93; PULSE 65; RESP 16; TEMP 36.3; O2SAT 97
[2023-05-12] MEDS: LORazepam 1 MG Tablet PO ×5 (03:05→20:51)
[2023-05-12] MEDS: Thiamine Hydrochloride 100 MG Tablet PO (08:42)
[2023-05-12] MEDS: hydrOXYzine PAM 25 MG Capsule 50 MG PO ×2 (08:42→14:02)
[2023-05-12] MEDS: Folic Acid 1 MG Tablet PO (08:42)
[2023-05-12 09:00] VITALS: BP 138/68; PULSE 98; RESP 16; TEMP 36.7; O2SAT 96
--- NOTE | 2023-05-12 10:31 | PN_ITS ---
Subjective Subjective Patient seen and examined. He had no complaints today. He had an uneventful night. Review of systems otherwise negative. Lab process elevated today at 151/93. Objective Data Objective Data Vital Signs: Vital Signs Temp Pulse Resp BP Pulse Ox O2 Del Method 97.3 F L 65 16 151/93 H 97 Room Air 05/12/23 03:00 05/12/23 03:00 05/12/23 03:00 05/12/23 03:00 05/12/23 03:00 05/12/23 03:00 Oxygen Delivery Method Room Air Weight: 261 lb 0.437 oz Body Mass Index (BMI) 33.5 Intake & Output: Intake and Output for Last 24 Hours 05/10/23 05/11/23 05/12/23 23:59 23:59 23:59 Intake Total 1999 700 / 700 Balance 1999 700 / 700 Lab / Micro Data 05/10/23 21:52 05/10/23 21:52 Physical Exam Const alert, oriented x3 and no apparent distress General Appearance: cooperative and well developed HEENT normocephalic, head/scalp atraumatic, moist oral mucous membranes and oropharynx normal Eyes PERRL and EOMs intact bilaterally Neck no lymphadenopathy and supple Lymph Lymphatic: no lymphadenopathy noted and no lymphedema noted Resp normal respiratory effort, normal air movement and clear to auscultation bilaterally Cardio regular rate, regular rhythm, S1 normal heart sound, S2 normal heart sound and no murmurs GI normal to inspection, nondistended, normoactive bowel sounds, soft to palpation, non-tender and non-distended Extremity normal capillary refill and no clubbing, cyanosis or edema General Extremity: no tenderness to palpation of joints or extremities Skin General Skin Exam: no breakdown Neuro CN's II-XII intact bilaterally, no focal motor deficits and no sensory deficits noted Motor Exam: strength 5/5 throughout Psych thought process normal and cooperative Appearance: appropriate Assessment & Plan Assessment/Plan (1) Alcohol abuse: PLAN: Plan #Acute alcohol withdrawal * on alcohol withdrawal protocol with phenobarbital * adjunctive meds for symptomatic relief * on thiamine, folic acid and multivite * #elevated BP * Blood pressure elevated at 151/93. * Has had blood pressure elevations since last year. Not on any BP meds. * Will start on p.o. amlodipine 10 mg daily. Follow-up with PCP on outpatient basis for adjustment of BP meds as needed. * * DVT prophylaxis; Low risk, encourage ambulation Charges/Coding Visit Charges Inpatient E&M: 97172 Subs Hosp L2
[2023-05-12] MEDS: amLODIPine 10 MG Tablet PO (14:03)
[2023-05-12 15:00] VITALS: BP 153/97; PULSE 91; RESP 16; TEMP 36.8; O2SAT 95
[2023-05-12] MEDS: Gabapentin 300 MG Capsule PO (17:57)
[2023-05-12 20:56] VITALS: BP 152/90; PULSE 80; RESP 16; TEMP 36.8; O2SAT 98
[2023-05-13] MEDS: LORazepam 1 MG Tablet PO ×3 (00:04→09:47)
[2023-05-13] MEDS: traZODone 100 MG Tablet PO (00:06)
[2023-05-13 03:59] VITALS: BP 135/82; PULSE 73; RESP 16; TEMP 36.6; O2SAT 98
--- NOTE | 2023-05-13 09:35 | DS.PCM_ITS ---
Providers Date of Admission: 05/10/23 Date of Discharge: 05/13/23 Primary Care Physician: No Primary Care Phys Reason For Visit: ALCOHOL WITHDRAWAL Diagnosis Discharge Diagnosis (1) Alcohol abuse: Status: Acute Code(s): F10.10 - Alcohol abuse, uncomplicated Plan #Acute alcohol withdrawal * on alcohol withdrawal protocol with phenobarbital * adjunctive meds for symptomatic relief * on thiamine, folic acid and multivite * #elevated BP * Blood pressure elevated at 151/93. * Has had blood pressure elevations since last year. Not on any BP meds. * Will start on p.o. amlodipine 10 mg daily. Follow-up with PCP on outpatient basis for adjustment of BP meds as needed. * * DVT prophylaxis; Low risk, encourage ambulation Medications at Discharge Home Medications NK 08/11/22 Hospital Course Operations None Procedures None Summary of Care Provided Minutes Spent on Discharge: 40 Hospital Course: Patient is a 37-year-old male with a past medical history as outlined including hypertension and alcohol abuse. He was admitted to the ED on 05/10/2023. Patient had been drinking since he was 20 and was admitted in July 2022 and was started to come to the hospital for acute alcohol withdrawal. He went for 1 days sober but subsequently started drinking again. Complained of increased sweating when he stopped drinking. He had no other withdrawal symptoms. Review of symptoms otherwise negative. Urine tox was otherwise negative. He was admitted and managed for acute alcohol withdrawal. He was started on alcohol withdrawal protocol with phenobarbital. He tolerated the 3-day detox process. He remained stable and was discharged home on 05/13/2023. He is follow-up with his primary care doctor within 1 to 2 weeks. Patient seen and examined prior to discharge. He had no active complaints. Review of systems otherwise negative. Labs and vitals reviewed. Home medicati on reviewed and reconciled. Physical Exam Const alert, oriented x3 and no apparent distress General Appearance: cooperative, comfortable, well kempt and well developed Orientation / Consciousness: awake HEENT normocephalic, head/scalp atraumatic, hearing grossly normal bilaterally, moist oral mucous membranes and oropharynx normal Mouth: oral and palatal mucosa normal Eyes PERRL and EOMs intact bilaterally Neck no lymphadenopathy and supple Lymph Lymphatic: no lymphadenopathy noted and no lymphedema noted Resp normal respiratory effort, normal air movement and clear to auscultation bilaterally Cardio regular rate, regular rhythm, S1 normal heart sound, S2 normal heart sound and no murmurs GI normal to inspection, nondistended, normoactive bowel sounds, soft to palpation, non-tender and non-distended Extremity normal to inspection, full ROM, normal capillary refill and no clubbing, cyanosis or edema General Extremity: no tenderness to palpation of joints or extremities Skin no rashes or lesions noted General Skin Exam: no breakdown Neuro oriented x3, CN's II-XII intact bilaterally, moves all extremities, no focal motor deficits and no sensory deficits noted Sensorium / Orientation: awake and alert Motor Exam: strength 5/5 throughout Psych thought process normal and cooperative Appearance: appropriate Weight / BMI Weight Weight: 261 lb 0.437 oz Body Mass Index (BMI) 33.5 ABG / Lab / Microbiology Data 05/10/23 21:52 05/10/23 21:52 D/C Instructions Discharge Diet: Low fat / Low cholesterol Discharge Activity: Return to Normal Activity Weight Bearing Status: Weight bearing as tolerated Call your doctor if you observe: Fever of 101 or Higher, Shortness of breath, Dizziness, Swelling in the ankles, Chest pain and Increased palpitations (irregular heartbeat) Meaningful Use Info Meaningful Use Diagnoses (Choose all that apply): None applicable Discharge Plan Admission Admit Date/Time: 05/10/23 23:05 Primary Reason for Your Visit: acute alcohol withdrawal Attending Provider: Adore Alexis Primary Care Provider: Care Physician,Debo Primary Consulting Providers: Nathaniel Espinoza Instructions Forms: Work / School Excuse Patient Instructions: Alcohol Addiction, Alcohol Withdrawal: What to Expect, Addiction: Getting Help Discharge Orders/Prescriptions Prescriptions: No Action NK Referrals / Follow Up: Care Physician,No Primary [Primary Care Provider] - Disposition Disposition (needs filled in before D/C Order can be placed): Home, Self Care Charges/Coding Visit Charges Inpatient E&M: 20947 Disch Hosp >30min
--- NOTE | 2023-05-13 09:35 | DCINST_ITS ---
Discharge Instructions Diet Discharge Diet: Low fat / Low cholesterol Activity Discharge Activity: Return to Normal Activity Weight Bearing Status: Weight bearing as tolerated Dressing / Incision Call your doctor if you observe: Fever of 101 or Higher, Shortness of breath, Dizziness, Swelling in the ankles, Chest pain and Increased palpitations (irregular heartbeat) Follow Up Care Test Results: Test results from this visit will be discussed in further detail at your follow- up appointment, if applicable. Discharge Plan Admission Admit Date/Time: 05/10/23 23:05 Primary Reason for Your Visit: acute alcohol withdrawal Attending Provider: Adore Alexis Primary Care Provider: Care Physician,No Primary Consulting Providers: Nathaniel Espinoza Instructions Patient Instructions: Alcohol Addiction, Alcohol Withdrawal: What to Expect, Addiction: Getting Help Discharge Orders/Prescriptions Prescriptions: No Action NK Referrals / Follow Up: Care Physician,No Primary [Primary Care Provider] - Disposition Disposition (needs filled in before D/C Order can be placed): Home, Self Care
[2023-05-13 09:42] VITALS: BP 152/83; PULSE 84; RESP 18; TEMP 36.6; O2SAT 96
[2023-05-13] MEDS: Folic Acid 1 MG Tablet PO (09:47)
[2023-05-13] MEDS: Thiamine Hydrochloride 100 MG Tablet PO (09:47)
[2023-05-13] MEDS: amLODIPine 10 MG Tablet PO (09:48)
== END 2023-05-13 11:48 | disposition home or self-care (01) | DRG 897 ==
LOC: ED 22:04 → MS3 23:13
PROVIDERS: Admitting Provider Family Medicine; Emergency Provider Student in an Organized Health Care Education/Training Program; Visit Provider Student in an Organized Health Care Education/Training Program
DX: F10.139 Alcohol abuse with withdrawal, unspecified (principal); F17.210 Nicotine dependence, cigarettes, uncomplicated; I10 Essential (primary) hypertension; Y90.7 Blood alcohol level of 200-239 mg/100 ml
CPT/HCPCS: 80053; 80307; 80320; 85025; 99284; A4216; G0480